=== PATIENT | female | born 1935 | race Caucasian/White ===

== ENCOUNTER → 2016-09-25 | Outpatient (REF) | payer MEDICARE ==
[~2016-09-25] MED LIST: ACET65TA OR; ALBU17IN2 IN; ASPI81TA83 OR; ATOR1TAB19 PO; BISO5TAB5 PO; BREO1INH INH; CALC600T57 PO; CALCCHW12 OR; CIPR25SS PO; CLON0.5T PO; COZA100T OR; DIPH2.5L PO; FLAG500T OR; LETROZOLE PO; LOSA100T PO; LOSARTAN/HCTZ PO; MAALSUS OR; MAG-TAB OR; MAGN500T5 PO; OMEP20CA3 PO; OMEP20TA7 OR; PRED10TA PO; PROA1AER INH; SLOWTAB OR; SM I100T PO; ZEBE5TAB OR; ZOCO40TA OR; boniva OR; compazine OR; hyzaar OR; hyzaar PO
[2016-09-25 20:26] LABS: ALBUMIN 3.9 GM/DL (3.2-5.2); ALBUMIN/GLOBULIN RATIO 1.3 (1.00-1.93); BILIRUBIN,TOTAL 0.3 MG/DL (0.2-1.0); CALCIUM LEVEL 8.7 MG/DL (8.8-10.2); CREATININE FOR GFR 1.34 MG/DL (0.55-1.02); GLOMERULAR FILTRATION RATE 40.5 (>32); MAGNESIUM LEVEL 2.4 MG/DL (1.8-2.4); TOTAL PROTEIN 6.9 GM/DL (6.4-8.2)
[2016-09-25 20:33] LABS: POTASSIUM SERUM 5.7 MEQ/L (3.5-5.1)
== END ==
LOC: M SFHCPLAZ 15:43
PROVIDERS: ATTEND Internal Medicine
DX: I25.10 Atherosclerotic heart disease of native coronary artery without angina pectoris (principal); R73.01 Impaired fasting glucose; I10 Essential (primary) hypertension
CPT/HCPCS: 36415; 80053; 83036; 83735; G0463

== ENCOUNTER 2016-10-02 12:44 | Emergency (ER) | payer MEDICARE ==
[~2016-10-02] VITALS: Ht 162.6 cm; Wt 55.8 kg
[2016-10-02 13:24] LABS: BASO % 0.6 % (0.0-1.0); EOS # 0.5 K/mm3 (0.0-0.50); EOS % 7.9 % (0.0-3.0); LARGE UNSTAINED CELL # 0.1 K/mm3 (0.0-0.4); LARGE UNSTAINED CELL % 1.7 % (0.0-4.0); LYMPH # 0.8 K/mm3 (1.5-4.5); LYMPH % 14.5 % (24.0-44.0); MEAN CORPUSCULAR HEMOGLOBIN 33.9 pg (27.0-33.0); MEAN CORPUSCULAR HGB CONC 31.9 g/dl (32.0-36.5); MEAN CORPUSCULAR VOLUME 106.2 fl (80.0-96.0); MONO # 0.4 K/mm3 (0.0-0.8); MONO % 7.1 % (0.0-5.0); NEUTROPHILS % 68.2 % (36.0-66.0); PLATELET COUNT, AUTOMATED 208 k/mm3 (150-450); RED CELL DISTRIBUTION WIDTH 12.6 % (11.5-14.5); WHITE BLOOD COUNT 5.8 K/mm3 (4.0-10.0)
[2016-10-02] MEDS ORDERED: NITROGLYCERIN 0.4 MG SUBL TABLET SL STA (13:43)
[2016-10-02 13:50] LABS: ALBUMIN 3.4 GM/DL (3.2-5.2); ALBUMIN/GLOBULIN RATIO 1.03 (1.00-1.93); ALKALINE PHOSPHATASE 61 U/L (45-117); ALT/SGPT 16 U/L (12-78); ANION GAP 4 MEQ/L (8-16); AST/SGOT 16 U/L (15-37); BILIRUBIN,DIRECT < 0.1 MG/DL (0.0-0.2); BILIRUBIN,TOTAL 0.2 MG/DL (0.2-1.0); BLOOD UREA NITROGEN 21 MG/DL (7-18); CALCIUM LEVEL 8.5 MG/DL (8.8-10.2); CARBON DIOXIDE LEVEL 32 MEQ/L (21-32); CHLORIDE LEVEL 105 MEQ/L (98-107); CREATININE FOR GFR 1.06 MG/DL (0.55-1.02); GLOMERULAR FILTRATION RATE 53.1 (>32); GLUCOSE, FASTING 103 MG/DL (83-110); POTASSIUM SERUM 4.3 MEQ/L (3.5-5.1); SODIUM LEVEL 141 MEQ/L (136-145); TOTAL PROTEIN 6.7 GM/DL (6.4-8.2)
--- NOTE | 2016-10-02 13:54 | REP ---
CHEST, TWO VIEWS: HISTORY: Chest pain. COMPARISON: 04/08/2016. The lungs are hyperinflated. An increase in interstitial markings is present in the lungs. The heart is normal in size. The pulmonary vasculature is normal in appearance. Degenerative change is present in the thoracic spine. IMPRESSION: COPD. Signed by Ramon Rocha MD 10/02/2016 02:09 P
[2016-10-02] MEDS ORDERED: traMADol 50 MG TAB PO ONE (14:15)
[2016-10-02 14:32] VITALS: O2SAT 99
[2016-10-02 20:16] VITALS: BP 134/61
--- NOTE | 2016-10-03 08:09 | ECGEPIP ---
Stationary ECG Study [facility] - ED Test Date: 2016-10-02 Pat Name: EFREN LAWLER Department: Room: - Gender: F Lpn Or Medical Assistant: john : 1935 Requested By: JACEK Franklin Order Number: [id number] Reading MD: Vickie Bolden Measurements Intervals [place] Rate: 60 P: 81 [place]: 156 QRS: 39 QRSD: 82 T: 54 QT: 423 QTc: 426 Interpretive Statements SINUS RHYTHM LOW VOLTAGE LIMB NSTTW ABNORMALITY DECREASED RATE 05/20/16 Electronically Signed On 10-03-2016 8:08:42 EDT by Vickie Bolden
--- NOTE | 2016-10-03 08:18 | ECGEPIP ---
Stationary ECG Study [facility] - ED Test Date: 2016-10-02 Pat Name: EFREN LAWLER Department: Room: - Gender: F Maintenance Service Dispatcher: john : 1935 Requested By: JACEK Franklin Order Number: [id number] Reading MD: Vickie Bolden Measurements Intervals [place] Rate: 57 P: 63 [place]: 161 QRS: 41 QRSD: 81 T: 58 QT: 434 QTc: 423 Interpretive Statements SINUS BRADYCARDIA WITH SINUS ARRHYTHMIA NSTTW ABNORMALITY LOW VOLTAGE LIMB SIMILAR 10/02/16 13:00 Electronically Signed On 10-03-2016 8:18:04 EDT by Vickie Bolden
== END 2016-10-02 21:19 | disposition home or self-care (01) ==
LOC: M ED 15:03
DX: R06.02 Shortness of breath (principal); R94.31 Abnormal electrocardiogram [ECG] [EKG]; I25.10 Atherosclerotic heart disease of native coronary artery without angina pectoris; E11.9 Type 2 diabetes mellitus without complications; J44.9 Chronic obstructive pulmonary disease, unspecified; Z95.5 Presence of coronary angioplasty implant and graft; Z79.899 Other long term (current) drug therapy; Z91.041 Radiographic dye allergy status; Z88.8 Allergy status to other drugs, medicaments and biological substances

== ENCOUNTER → 2016-11-28 | Outpatient (REF) | payer MEDICARE ==
[2016-11-28 20:18] LABS: PERCENT SATURATION 21.4 % (13.2-37.4)
== END ==
LOC: M LAB REF 16:27
PROVIDERS: ATTEND Internal Medicine Medical Oncology
DX: C50.519 Malignant neoplasm of lower-outer quadrant of unspecified female breast (principal)

== ENCOUNTER → 2017-02-07 | Outpatient (CLI) | payer MEDICARE ==
[~2017-02-07] MED LIST changes: -LOSA100T PO; +LOSA100T8 PO; -PRED10TA PO; +PRED10TA2 PO; -PROA1AER INH; +PROAAER10 INH
[2017-02-07 13:57] LABS: ALBUMIN 3.6 GM/DL (3.2-5.2); ALBUMIN/GLOBULIN RATIO 1.09 (1.00-1.93); ALKALINE PHOSPHATASE 57 U/L (45-117); ALT/SGPT 14 U/L (12-78); ANION GAP 8 MEQ/L (8-16); AST/SGOT 11 U/L (15-37); BILIRUBIN,TOTAL 0.4 MG/DL (0.2-1.0); BLOOD UREA NITROGEN 19 MG/DL (7-18); CARBON DIOXIDE LEVEL 32 MEQ/L (21-32); CHLORIDE LEVEL 104 MEQ/L (98-107); CHOLESTEROL LEVEL 107 MG/DL (<200); CREATININE FOR GFR 0.91 MG/DL (0.55-1.02); GLOMERULAR FILTRATION RATE > 60.0 (>32); GLUCOSE, FASTING 100 MG/DL (83-110); MAGNESIUM LEVEL 1.9 MG/DL (1.8-2.4); SODIUM LEVEL 144 MEQ/L (136-145); TOTAL PROTEIN 6.9 GM/DL (6.4-8.2); TRIGLYCERIDES LEVEL 74 MG/DL (<150)
[2017-02-07 13:59] LABS: POTASSIUM SERUM 5.2 MEQ/L (3.5-5.1)
== END ==
LOC: M WUC 09:01
PROVIDERS: ATTEND Internal Medicine
DX: R73.01 Impaired fasting glucose (principal); I10 Essential (primary) hypertension; E78.00 Pure hypercholesterolemia, unspecified

== ENCOUNTER → 2017-02-13 | Outpatient (REF) | payer MEDICARE | LOC: M SMT 13:12 | PROVIDERS: ATTEND Internal Medicine | DX: R73.01 Impaired fasting glucose (principal) ==

== ENCOUNTER → 2017-02-27 | Outpatient (CLI) | payer MEDICARE ==
--- NOTE | 2017-02-27 10:31 | REP ---
ULTRASOUND ABDOMINAL AORTA: Real-time sonographic evaluation of the abdominal aorta is performed. Maximum AP diameter of the distal abdominal aorta is 3.7 cm, with transverse diameter. 4.2 cm, compatible with an abdominal aortic aneurysm. This extends for a length of between 4 and 5 cm. Measurements are essentially unchanged since the prior study of 12/08/2015. More proximally, the maximum AP diameter of the abdominal aorta is 2.8 to 2.9 cm. Right common iliac artery measures 1.2 x 1.6 cm and left common iliac artery 1.1 x 1.3 cm. There is moderate plaquing and thrombus in the aneurysm with the residual lumen measuring 1.9 x 2.9 cm. IMPRESSION: Stable abdominal aortic aneurysm.
== END ==
LOC: M WHC 08:55
PROVIDERS: ATTEND Internal Medicine
DX: I71.4 Abdominal aortic aneurysm, without rupture (principal)

== ENCOUNTER → 2017-05-29 | Outpatient (REF) | payer MEDICARE ==
[2017-05-29 19:05] LABS: FERRITIN 213 NG/ML (8-252); PERCENT SATURATION 26.2 % (13.2-45.0); TOTAL IRON BINDING CAPACITY 260 UG/DL (250-450)
[2017-05-29 22:05] LABS: VITAMIN B12 LEVEL 394 PG/ML
[2017-05-29 22:06] LABS: FOLATE 8.5 NG/ML
== END ==
LOC: M LAB REF 16:48
DX: D64.9 Anemia, unspecified (principal)
CPT/HCPCS: 82746

== ENCOUNTER → 2017-07-04 | Outpatient (CLI) | payer MEDICARE ==
[2017-07-04 14:04] LABS: HEMATOCRIT 39.5 % (36.0-47.0); MEAN CORPUSCULAR HEMOGLOBIN 30.4 pg (27.0-33.0); MEAN CORPUSCULAR HGB CONC 27.8 g/dl (32.0-36.5); MEAN CORPUSCULAR VOLUME 109.1 fl (80.0-96.0); PLATELET COUNT, AUTOMATED 215 10^3/uL (150-450); RED BLOOD COUNT 3.62 10^6/uL (4.00-5.40); RED CELL DISTRIBUTION WIDTH 12.8 % (11.5-14.5); WHITE BLOOD COUNT 6.1 10^3/uL (4.0-10.0)
[2017-07-04 14:28] LABS: ALBUMIN/GLOBULIN RATIO 1.29 (1.00-1.93); ALKALINE PHOSPHATASE 57 U/L (45-117); ALT/SGPT 17 U/L (12-78); ANION GAP 7 MEQ/L (8-16); AST/SGOT 16 U/L (7-37); BILIRUBIN,TOTAL 0.4 MG/DL (0.2-1.0); BLOOD UREA NITROGEN 28 MG/DL (7-18); CALCIUM LEVEL 9.2 MG/DL (8.8-10.2); CARBON DIOXIDE LEVEL 30 MEQ/L (21-32); CHLORIDE LEVEL 106 MEQ/L (98-107); CREATININE FOR GFR 1.05 MG/DL (0.55-1.30); GLOMERULAR FILTRATION RATE 53.5 (>32); GLUCOSE, FASTING 122 MG/DL (70-100); MAGNESIUM LEVEL 2.2 MG/DL (1.8-2.4); SODIUM LEVEL 143 MEQ/L (136-145); TOTAL PROTEIN 7.1 GM/DL (6.4-8.2)
[2017-07-04 14:38] LABS: POTASSIUM SERUM 5.3 MEQ/L (3.5-5.1)
== END ==
LOC: M WUC 08:42
DX: J44.9 Chronic obstructive pulmonary disease, unspecified (principal); I10 Essential (primary) hypertension
CPT/HCPCS: 83735

== ENCOUNTER 2017-09-14 06:01 | Emergency (ER) | payer MEDICARE ==
[2017-09-14 06:42] LABS: BASO % 0.4 % (0.0-1.0); EOS # 0.3 10^3/uL (0.0-0.50); EOS % 4.7 % (0.0-3.0); HEMATOCRIT 36.4 % (36.0-47.0); HEMOGLOBIN 10.8 g/dl (12.0-15.5); IMMATURE GRANULOCYTE % 0.1 % (0-3.0); LYMPH # 1.1 10^3/uL (1.5-4.5); LYMPH % 15.6 % (24.0-44.0); MEAN CORPUSCULAR HEMOGLOBIN 31.5 pg (27.0-33.0); MEAN CORPUSCULAR HGB CONC 29.7 g/dl (32.0-36.5); MEAN CORPUSCULAR VOLUME 106.1 fl (80.0-96.0); MONO # 0.6 10^3/uL (0.0-0.8); MONO % 8.8 % (0.0-5.0); NEUTROPHILS # 4.8 10^3/uL (1.8-7.7); NEUTROPHILS % 70.4 % (36.0-66.0); PLATELET COUNT, AUTOMATED 172 10^3/uL (150-450); RED BLOOD COUNT 3.43 10^6/uL (4.00-5.40); RED CELL DISTRIBUTION WIDTH 12.6 % (11.5-14.5); WHITE BLOOD COUNT 6.9 10^3/uL (4.0-10.0)
[2017-09-14 07:02] LABS: ANION GAP 6 MEQ/L (8-16); BLOOD UREA NITROGEN 29 MG/DL (7-18); CALCIUM LEVEL 8.7 MG/DL (8.8-10.2); CARBON DIOXIDE LEVEL 31 MEQ/L (21-32); CHLORIDE LEVEL 107 MEQ/L (98-107); CPK CREATINE PHOSPHOKINASE 59 U/L (26-192); CREATININE FOR GFR 1.16 MG/DL (0.55-1.30); GLOMERULAR FILTRATION RATE 47.7 (>32); GLUCOSE, FASTING 118 MG/DL (70-100); MB/CK RELATIVE INDEX 3.38 (< OR =4); POTASSIUM SERUM 4.4 MEQ/L (3.5-5.1); SODIUM LEVEL 144 MEQ/L (136-145); TROPONIN I < 0.02 NG/ML (< 0.10)
[2017-09-14 11:29] LABS: CK-MB VALUE MASS 2.2 NG/ML (<3.6); CPK CREATINE PHOSPHOKINASE 64 U/L (26-192); MB/CK RELATIVE INDEX 3.43 (< OR =4); TROPONIN I 0.03 NG/ML (< 0.10)
== END 2017-09-14 12:25 | disposition home or self-care (01) ==
LOC: M ED 06:01
DX: R07.9 Chest pain, unspecified (principal); R91.8 Other nonspecific abnormal finding of lung field; E11.9 Type 2 diabetes mellitus without complications; J44.9 Chronic obstructive pulmonary disease, unspecified; I10 Essential (primary) hypertension; M81.0 Age-related osteoporosis without current pathological fracture; F41.9 Anxiety disorder, unspecified; Z87.19 Personal history of other diseases of the digestive system; Z87.891 Personal history of nicotine dependence; Z86.69 Personal history of other diseases of the nervous system and sense organs
CPT/HCPCS: 71045

== ENCOUNTER → 2018-01-01 | Outpatient (CLI) | payer MEDICARE ==
[2018-01-01 12:51] LABS: TOTAL 25(OH) VITAMIN D 25.4 NG/ML (30.0-100.0)
[2018-01-01 13:19] LABS: ALBUMIN 3.8 GM/DL (3.2-5.2); ALBUMIN/GLOBULIN RATIO 1.09 (1.00-1.93); ALKALINE PHOSPHATASE 63 U/L (45-117); ALT/SGPT 18 U/L (12-78); ANION GAP 5 MEQ/L (8-16); AST/SGOT 14 U/L (7-37); BILIRUBIN,TOTAL 0.4 MG/DL (0.2-1.0); BLOOD UREA NITROGEN 25 MG/DL (7-18); CARBON DIOXIDE LEVEL 34 MEQ/L (21-32); CHLORIDE LEVEL 104 MEQ/L (98-107); CHOLESTEROL LEVEL 111 MG/DL (<200); CHOLESTEROL RISK RATIO 2.522 (<5); GLOMERULAR FILTRATION RATE 56.5 (>32); GLUCOSE, FASTING 118 MG/DL (70-100); HDL CHOLESTEROL 44 MG/DL (>40); MAGNESIUM LEVEL 1.6 MG/DL (1.8-2.4); NON-HDL-C 67 MG/DL; SODIUM LEVEL 143 MEQ/L (136-145); TOTAL PROTEIN 7.3 GM/DL (6.4-8.2); TRIGLYCERIDES LEVEL 120 MG/DL (<150)
[2018-01-01 13:34] LABS: ESTIMATED AVERAGE GLUCOSE 126 MG/DL (60-110)
== END ==
LOC: M WUC 08:58
DX: Z00.00 Encounter for general adult medical examination without abnormal findings (principal); I10 Essential (primary) hypertension; E78.00 Pure hypercholesterolemia, unspecified; M81.0 Age-related osteoporosis without current pathological fracture
CPT/HCPCS: 83735

== ENCOUNTER 2018-03-23 17:43 | Inpatient (IN) | payer MEDICARE ==
[2018-03-23 18:43] LABS: BASO % 0.2 % (0.0-1.0); EOS # 0.1 10^3/uL (0.0-0.50); EOS % 0.6 % (0.0-3.0); HEMOGLOBIN 10.3 g/dl (12.0-15.5); IMMATURE GRANULOCYTE % 0.3 % (0-3.0); LYMPH # 0.4 10^3/uL (1.5-4.5); LYMPH % 4.1 % (24.0-44.0); MEAN CORPUSCULAR HEMOGLOBIN 32.7 pg (27.0-33.0); MEAN CORPUSCULAR HGB CONC 29.4 g/dl (32.0-36.5); MEAN CORPUSCULAR VOLUME 111.1 fl (80.0-96.0); NEUTROPHILS % 85.8 % (36.0-66.0); PLATELET COUNT, AUTOMATED 179 10^3/uL (150-450); RED BLOOD COUNT 3.15 10^6/uL (4.00-5.40); RED CELL DISTRIBUTION WIDTH 12.4 % (11.5-14.5); WHITE BLOOD COUNT 10.5 10^3/uL (4.0-10.0)
[2018-03-23 18:54] LABS: LACTIC ACID SEPSIS PROTOCOL 1.3 MMOL/L (0.4-2.0)
[2018-03-23 18:55] LABS: PROTHROMBIN TIME 13.3 SECONDS (12.1-14.4)
[2018-03-23 18:58] LABS: ALBUMIN 3.6 GM/DL (3.2-5.2); ALBUMIN/GLOBULIN RATIO 1.16 (1.00-1.93); ALKALINE PHOSPHATASE 49 U/L (45-117); ALT/SGPT 17 U/L (12-78); AMYLASE 123 U/L (25-115); ANION GAP 10 MEQ/L (8-16); AST/SGOT 18 U/L (7-37); BILIRUBIN,DIRECT 0.2 MG/DL (0.0-0.2); BILIRUBIN,TOTAL 0.7 MG/DL (0.2-1.0); BLOOD UREA NITROGEN 27 MG/DL (7-18); CALCIUM LEVEL 8.3 MG/DL (8.8-10.2); CARBON DIOXIDE LEVEL 31 MEQ/L (21-32); CHLORIDE LEVEL 98 MEQ/L (98-107); CPK CREATINE PHOSPHOKINASE 51 U/L (26-192); CREATININE FOR GFR 1.08 MG/DL (0.55-1.30); FREE T4 1.22 NG/DL (0.76-1.46); GLOMERULAR FILTRATION RATE 51.7 (>32); GLUCOSE, FASTING 182 MG/DL (70-100); LIPASE 156 U/L (73-393); MB/CK RELATIVE INDEX 2.55 (< OR =4); SODIUM LEVEL 139 MEQ/L (136-145); TOTAL PROTEIN 6.7 GM/DL (6.4-8.2); TROPONIN I 0.23 NG/ML (< 0.10)
[2018-03-23] MEDS: NS 500 ML IV (19:35)
[2018-03-23 20:47] LABS: KETONE, URINE AUTO RFX 1+ mg/dL (NEGATIVE); MUCUS, URINE RFX SMALL (NEGATIVE); NITRITE, URINE AUTO RFX NEGATIVE (NEGATIVE); RBC, URINE AUTO RFX 10 /HPF (0-3); SPECIFIC GRAVITY UR AUTO RFX 1.015 (1.002-1.035); SQUAM EPITHELIAL CELL UR AURFX 3 /HPF (0-6); TRANSITIONAL EPITHELIAL AU RFX <1 /HPF
[2018-03-23 20:48] LABS: LEUKOCYTE ESTERASE UR AUTO RFX 3+ (NEGATIVE); WBC, URINE AUTO RFX 37 /HPF (0-3)
[2018-03-23] MEDS: clonazePAM 0.5 MG TAB PO (21:00)
[2018-03-24 00:48] LABS: CPK CREATINE PHOSPHOKINASE 63 U/L (26-192)
[2018-03-24] MEDS: CIPROFLOXACIN 400 MG in APPROPRIATE DILUENT 1 EA IV (01:19)
[2018-03-24] MEDS ORDERED: ONDANSETRON 4MG/2ML VIAL (J2405) IV (02:15)
[2018-03-24] MEDS: NS 1,000 ML IV ×2 (04:00→15:35)
[2018-03-24] MEDS: ACETAMINOPHEN TAB 650MG DOSE (2X325MG) PO (04:17)
[2018-03-24] MEDS: cefTRIAXone SOD 1 GM in D5W MINI-BAG PLUS 50 ML IV (06:27)
[2018-03-24 07:04] LABS: BASO % 0.3 % (0.0-1.0); EOS % 0.1 % (0.0-3.0); HEMATOCRIT 29.5 % (36.0-47.0); HEMOGLOBIN 8.9 g/dl (12.0-15.5); IMMATURE GRANULOCYTE % 0.3 % (0-3.0); LYMPH # 0.8 10^3/uL (1.5-4.5); LYMPH % 7.3 % (24.0-44.0); MEAN CORPUSCULAR HEMOGLOBIN 32.4 pg (27.0-33.0); MEAN CORPUSCULAR HGB CONC 30.2 g/dl (32.0-36.5); MEAN CORPUSCULAR VOLUME 107.3 fl (80.0-96.0); MONO # 1.1 10^3/uL (0.0-0.8); MONO % 10.1 % (0.0-5.0); NEUTROPHILS # 8.7 10^3/uL (1.8-7.7); NEUTROPHILS % 81.9 % (36.0-66.0); PLATELET COUNT, AUTOMATED 152 10^3/uL (150-450); RED BLOOD COUNT 2.75 10^6/uL (4.00-5.40); RED CELL DISTRIBUTION WIDTH 12.3 % (11.5-14.5); WHITE BLOOD COUNT 10.6 10^3/uL (4.0-10.0)
[2018-03-24 07:15] LABS: ANION GAP 7 MEQ/L (8-16); BLOOD UREA NITROGEN 20 MG/DL (7-18); CALCIUM LEVEL 8.3 MG/DL (8.8-10.2); CARBON DIOXIDE LEVEL 30 MEQ/L (21-32); CHLORIDE LEVEL 99 MEQ/L (98-107); CREATININE FOR GFR 0.83 MG/DL (0.55-1.30); GLOMERULAR FILTRATION RATE > 60.0 (>32); GLUCOSE, FASTING 135 MG/DL (70-100); POTASSIUM SERUM 3.6 MEQ/L (3.5-5.1); SODIUM LEVEL 136 MEQ/L (136-145)
[2018-03-24] MEDS: ENOXAPARIN 40 MG/0.4 ML SYRINGE (J1650) SC (08:52)
[2018-03-24] MEDS: CitaloPRAM (CeleXA) 10 MG TABLET PO (08:52)
[2018-03-24] MEDS: OMEPRAZOLE 20 MG CAP PO (08:52)
[2018-03-24] MEDS: LOSARTAN 50 MG TAB PO (09:00)
[2018-03-24] MEDS: BISOPROLOL FUM 2.5 MG PER 1/2TAB PO (13:01)
[2018-03-24] MEDS: ATORVASTATIN 20 MG TAB PO (20:27)
[2018-03-24] MEDS: clonazePAM 0.5 MG TAB PO (20:27)
[2018-03-25] MEDS: cefTRIAXone SOD 1 GM in D5W MINI-BAG PLUS 50 ML IV (05:20)
[2018-03-25] MEDS: NS 1,000 ML IV ×2 (05:20→18:15)
[2018-03-25 08:35] LABS: HEMATOCRIT 29.6 % (36.0-47.0); HEMOGLOBIN 8.6 g/dl (12.0-15.5); MEAN CORPUSCULAR HGB CONC 29.1 g/dl (32.0-36.5); PLATELET COUNT, AUTOMATED 160 10^3/uL (150-450); RED BLOOD COUNT 2.69 10^6/uL (4.00-5.40); RED CELL DISTRIBUTION WIDTH 12.3 % (11.5-14.5); WHITE BLOOD COUNT 7.8 10^3/uL (4.0-10.0)
[2018-03-25 08:55] LABS: MAGNESIUM LEVEL 1.3 MG/DL (1.8-2.4)
[2018-03-25 08:58] LABS: ANION GAP 4 MEQ/L (8-16); BLOOD UREA NITROGEN 11 MG/DL (7-18); CALCIUM LEVEL 8.1 MG/DL (8.8-10.2); CARBON DIOXIDE LEVEL 33 MEQ/L (21-32); CHLORIDE LEVEL 103 MEQ/L (98-107); CREATININE FOR GFR 0.71 MG/DL (0.55-1.30); GLOMERULAR FILTRATION RATE > 60.0 (>32); GLUCOSE, FASTING 99 MG/DL (70-100); POTASSIUM SERUM 3.6 MEQ/L (3.5-5.1); SODIUM LEVEL 140 MEQ/L (136-145)
[2018-03-25] MEDS: ENOXAPARIN 40 MG/0.4 ML SYRINGE (J1650) SC (09:03)
[2018-03-25] MEDS: LOSARTAN 50 MG TAB PO (09:04)
[2018-03-25] MEDS: CitaloPRAM (CeleXA) 10 MG TABLET PO (09:04)
[2018-03-25] MEDS: OMEPRAZOLE 20 MG CAP PO (09:04)
[2018-03-25 09:10] LABS: CPK CREATINE PHOSPHOKINASE 43 U/L (26-192); MB/CK RELATIVE INDEX 2.56 (< OR =4); TROPONIN I 0.11 NG/ML (< 0.10)
[2018-03-25] MEDS: BISOPROLOL FUM 2.5 MG PER 1/2TAB PO (10:33)
[2018-03-25] MEDS: FLUBLOK(EGG FREE)(QUAD)INFLUENZA VACC 0.5ML SYRINGE (90682)18YRS&OLDER IM (10:43)
[2018-03-25] MEDS: ACETAMINOPHEN TAB 650MG DOSE (2X325MG) PO ×2 (15:04→20:08)
[2018-03-25] MEDS: clonazePAM 0.5 MG TAB PO (20:07)
[2018-03-25] MEDS: ATORVASTATIN 20 MG TAB PO (20:07)
[2018-03-26] MEDS: cefTRIAXone SOD 1 GM in D5W MINI-BAG PLUS 50 ML IV (05:01)
[2018-03-26 06:09] LABS: HEMOGLOBIN 8.4 g/dl (12.0-15.5); MEAN CORPUSCULAR HEMOGLOBIN 32.3 pg (27.0-33.0); MEAN CORPUSCULAR VOLUME 111.5 fl (80.0-96.0); PLATELET COUNT, AUTOMATED 168 10^3/uL (150-450); RED CELL DISTRIBUTION WIDTH 12.3 % (11.5-14.5); WHITE BLOOD COUNT 5.2 10^3/uL (4.0-10.0)
[2018-03-26 06:37] LABS: ANION GAP 5 MEQ/L (8-16); BLOOD UREA NITROGEN 12 MG/DL (7-18); CALCIUM LEVEL 8.1 MG/DL (8.8-10.2); CARBON DIOXIDE LEVEL 32 MEQ/L (21-32); CHLORIDE LEVEL 106 MEQ/L (98-107); CREATININE FOR GFR 0.84 MG/DL (0.55-1.30); GLOMERULAR FILTRATION RATE > 60.0 (>32); GLUCOSE, FASTING 88 MG/DL (70-100); MAGNESIUM LEVEL 1.3 MG/DL (1.8-2.4); POTASSIUM SERUM 3.6 MEQ/L (3.5-5.1); SODIUM LEVEL 143 MEQ/L (136-145)
[2018-03-26 06:39] LABS: FERRITIN 416 NG/ML (8-252); IRON (FE) 26 UG/DL (50-170); PERCENT SATURATION 16.7 % (13.2-45.0); TOTAL IRON BINDING CAPACITY 156 UG/DL (250-450)
[2018-03-26] MEDS: FERROUS SULFATE 300MG/5ML UDC LIQUID PO ×2 (09:00→21:22)
[2018-03-26] MEDS: NS 1,000 ML IV ×2 (09:20→22:12)
[2018-03-26 09:21] LABS: VITAMIN B12 LEVEL > 2000 PG/ML (247-911)
[2018-03-26] MEDS: MAG SULF 1GM/100ML (MAG RUN) 1 GM in APPROPRIATE DILUENT 1 EA IV ×2 (09:22→10:35)
[2018-03-26 09:23] LABS: FOLATE 7.3 NG/ML (>5.4)
[2018-03-26] MEDS: OMEPRAZOLE 20 MG CAP PO (09:24)
[2018-03-26] MEDS: ENOXAPARIN 40 MG/0.4 ML SYRINGE (J1650) SC (09:24)
[2018-03-26] MEDS: MAGNESIUM OXIDE 400 MG TAB (MAG-OX) PO ×2 (09:24→21:23)
[2018-03-26] MEDS: CitaloPRAM (CeleXA) 10 MG TABLET PO (09:25)
[2018-03-26] MEDS: LOSARTAN 50 MG TAB PO (09:25)
[2018-03-26] MEDS: BISOPROLOL FUM 2.5 MG PER 1/2TAB PO (09:25)
[2018-03-26 11:08] LABS: GOLD SPEC TUBE RECIEVED
[2018-03-26] MEDS: ACETAMINOPHEN TAB 650MG DOSE (2X325MG) PO ×2 (12:38→21:23)
[2018-03-26] MEDS: ATORVASTATIN 20 MG TAB PO (21:22)
[2018-03-26] MEDS: clonazePAM 0.5 MG TAB PO (21:23)
[2018-03-27] MEDS ORDERED: MICONAZOLE-7 VAGINAL 2% CREAM 47.7 GM PV (03:47)
[2018-03-27] MEDS: cefTRIAXone SOD 1 GM in D5W MINI-BAG PLUS 50 ML IV (05:36)
[2018-03-27] MEDS: ACETAMINOPHEN TAB 650MG DOSE (2X325MG) PO (05:57)
[2018-03-27 07:08] LABS: HEMOGLOBIN 8.5 g/dl (12.0-15.5); MEAN CORPUSCULAR HEMOGLOBIN 32.6 pg (27.0-33.0); MEAN CORPUSCULAR HGB CONC 29.3 g/dl (32.0-36.5); MEAN CORPUSCULAR VOLUME 111.1 fl (80.0-96.0); PLATELET COUNT, AUTOMATED 169 10^3/uL (150-450); RED BLOOD COUNT 2.61 10^6/uL (4.00-5.40); RED CELL DISTRIBUTION WIDTH 12.2 % (11.5-14.5); WHITE BLOOD COUNT 6.1 10^3/uL (4.0-10.0)
[2018-03-27 07:40] LABS: ANION GAP 4 MEQ/L (8-16); BLOOD UREA NITROGEN 10 MG/DL (7-18); C REACTIVE PROTEIN QUANTITATIV 5.47 MG/DL (0.00-0.30); CALCIUM LEVEL 8.3 MG/DL (8.8-10.2); CARBON DIOXIDE LEVEL 34 MEQ/L (21-32); CHLORIDE LEVEL 102 MEQ/L (98-107); CREATININE FOR GFR 0.77 MG/DL (0.55-1.30); GLOMERULAR FILTRATION RATE > 60.0 (>32); GLUCOSE, FASTING 144 MG/DL (70-100); MAGNESIUM LEVEL 1.4 MG/DL (1.8-2.4); POTASSIUM SERUM 3.7 MEQ/L (3.5-5.1); SODIUM LEVEL 140 MEQ/L (136-145)
[2018-03-27] MEDS: BISOPROLOL FUM 2.5 MG PER 1/2TAB PO (10:19)
[2018-03-27] MEDS: OMEPRAZOLE 20 MG CAP PO (10:20)
[2018-03-27] MEDS: FERROUS SULFATE 300MG/5ML UDC LIQUID PO ×2 (10:20→20:45)
[2018-03-27] MEDS: CitaloPRAM (CeleXA) 10 MG TABLET PO (10:21)
[2018-03-27] MEDS: LOSARTAN 50 MG TAB PO (10:21)
[2018-03-27] MEDS: MAGNESIUM OXIDE 400 MG TAB (MAG-OX) PO ×2 (10:21→20:45)
[2018-03-27] MEDS: ENOXAPARIN 40 MG/0.4 ML SYRINGE (J1650) SC (10:22)
[2018-03-27] MEDS: ALBUTEROL 90 MCG/ACT 8GM HFA INHALER INH (10:27)
[2018-03-27] MEDS: NS 1,000 ML IV (11:52)
[2018-03-27] MEDS: CEFDINIR 300 MG CAP (OMNICEF) PO (20:45)
[2018-03-27] MEDS: ATORVASTATIN 20 MG TAB PO (20:45)
[2018-03-27] MEDS: clonazePAM 0.5 MG TAB PO (20:45)
[2018-03-28 06:26] LABS: HEMATOCRIT 30.1 % (36.0-47.0); HEMOGLOBIN 8.7 g/dl (12.0-15.5); MEAN CORPUSCULAR HGB CONC 28.9 g/dl (32.0-36.5); MEAN CORPUSCULAR VOLUME 110.7 fl (80.0-96.0); PLATELET COUNT, AUTOMATED 185 10^3/uL (150-450); RED BLOOD COUNT 2.72 10^6/uL (4.00-5.40); RED CELL DISTRIBUTION WIDTH 12.2 % (11.5-14.5); WHITE BLOOD COUNT 5.5 10^3/uL (4.0-10.0)
[2018-03-28 06:54] LABS: ANION GAP 3 MEQ/L (8-16); BLOOD UREA NITROGEN 8 MG/DL (7-18); CALCIUM LEVEL 8.8 MG/DL (8.8-10.2); CARBON DIOXIDE LEVEL 41 MEQ/L (21-32); CHLORIDE LEVEL 98 MEQ/L (98-107); CREATININE FOR GFR 0.65 MG/DL (0.55-1.30); GLOMERULAR FILTRATION RATE > 60.0 (>32); GLUCOSE, FASTING 102 MG/DL (70-100); MAGNESIUM LEVEL 1.3 MG/DL (1.8-2.4); POTASSIUM SERUM 3.8 MEQ/L (3.5-5.1); SODIUM LEVEL 142 MEQ/L (136-145)
[2018-03-28] MEDS: ENOXAPARIN 40 MG/0.4 ML SYRINGE (J1650) SC (08:54)
[2018-03-28] MEDS: FERROUS SULFATE 300MG/5ML UDC LIQUID PO (08:54)
[2018-03-28] MEDS: OMEPRAZOLE 20 MG CAP PO (08:55)
[2018-03-28] MEDS: CEFDINIR 300 MG CAP (OMNICEF) PO (08:55)
[2018-03-28] MEDS: MAGNESIUM OXIDE 400 MG TAB (MAG-OX) PO (08:55)
[2018-03-28] MEDS: CitaloPRAM (CeleXA) 10 MG TABLET PO (08:55)
[2018-03-28] MEDS: LOSARTAN 50 MG TAB PO (08:55)
[2018-03-28] MEDS: MAG SULF 1GM/100ML (MAG RUN) 1 GM in APPROPRIATE DILUENT 1 EA IV ×3 (08:56→11:11)
[2018-03-28] MEDS: BISOPROLOL FUM 2.5 MG PER 1/2TAB PO (08:58)
[2018-03-28] MEDS: ACETAMINOPHEN TAB 650MG DOSE (2X325MG) PO (10:06)
== END 2018-03-28 13:25 | disposition home health service (06) | DRG 690 ==
LOC: M ED INP 03-24 02:15 → M ED 17:43 → M MSPAV 03-24 16:37
DX: N39.0 Urinary tract infection, site not specified (principal); J44.9 Chronic obstructive pulmonary disease, unspecified; I10 Essential (primary) hypertension; D64.9 Anemia, unspecified; E83.42 Hypomagnesemia; B96.20 Unspecified Escherichia coli [E. coli] as the cause of diseases classified elsewhere; E78.5 Hyperlipidemia, unspecified; I25.10 Atherosclerotic heart disease of native coronary artery without angina pectoris; Z90.49 Acquired absence of other specified parts of digestive tract; Z90.710 Acquired absence of both cervix and uterus; Z90.12 Acquired absence of left breast and nipple; Z91.041 Radiographic dye allergy status; Z88.8 Allergy status to other drugs, medicaments and biological substances; Z87.891 Personal history of nicotine dependence; Z99.81 Dependence on supplemental oxygen

== ENCOUNTER 2018-05-01 18:07 | Emergency (ER) | payer MEDICARE ==
[2018-05-01] MEDS: traMADol 50 MG TAB PO (20:52)
[2018-05-01] MEDS: ACETAMINOPHEN 325 MG TAB PO (20:52)
[2018-05-01] MEDS ORDERED: BUPIVACAINE LIPOSOME/PF 1.3% 20ML VIAL (13.3MG/ML)(EXPAREL)(C9290 PER1MG) INFIL (22:00)
== END 2018-05-01 23:10 | disposition home or self-care (01) ==
LOC: M ED 18:07
DX: S22.42XA Multiple fractures of ribs, left side, initial encounter for closed fracture (principal); W01.0XXA Fall on same level from slipping, tripping and stumbling without subsequent striking against object, initial encounter; Y92.018 Other place in single-family (private) house as the place of occurrence of the external cause; J44.9 Chronic obstructive pulmonary disease, unspecified; I10 Essential (primary) hypertension; E11.9 Type 2 diabetes mellitus without complications; E78.00 Pure hypercholesterolemia, unspecified; M81.0 Age-related osteoporosis without current pathological fracture; F41.9 Anxiety disorder, unspecified; Z92.21 Personal history of antineoplastic chemotherapy; Z92.3 Personal history of irradiation; Z88.8 Allergy status to other drugs, medicaments and biological substances; Z91.041 Radiographic dye allergy status
CPT/HCPCS: 71101

== ENCOUNTER → 2018-07-11 | Outpatient (CLI) | payer MEDICARE ==
[~2018-07-11] MED LIST changes: +ATOR40TA75 PO; +BACI1CAP PO; +BISO10TA PO; +CEFD300CAP PO; +CITA-229 PO; -CLON0.5T PO; +CLON0.5T8 PO; +CLOP75TA2 PO; +FERR5MLUD PO; +LOSARTAN/HCT; +MAG400TA PO; +SPIR1CAP INH; +ULTR50TA8 PO
[2018-07-11 12:31] LABS: HEMATOCRIT 36.5 % (36.0-47.0); HEMOGLOBIN 10.4 g/dl (12.0-15.5); MEAN CORPUSCULAR HEMOGLOBIN 31.5 pg (27.0-33.0); MEAN CORPUSCULAR HGB CONC 28.5 g/dl (32.0-36.5); MEAN CORPUSCULAR VOLUME 110.6 fl (80.0-96.0); PLATELET COUNT, AUTOMATED 322 10^3/uL (150-450); WHITE BLOOD COUNT 6.9 10^3/uL (4.0-10.0)
[2018-07-11 12:52] LABS: ALBUMIN 3.5 GM/DL (3.2-5.2); BILIRUBIN,TOTAL 0.3 MG/DL (0.2-1.0); CALCIUM LEVEL 9.4 MG/DL (8.8-10.2); CREATININE FOR GFR 1.48 MG/DL (0.55-1.30); GLOMERULAR FILTRATION RATE 35.9 (>32); MAGNESIUM LEVEL 1.7 MG/DL (1.8-2.4); POTASSIUM SERUM 5.2 MEQ/L (3.5-5.1); TOTAL PROTEIN 7.4 GM/DL (6.4-8.2)
[2018-07-11 13:54] LABS: HEMOGLOBIN A1c 6.3 %
== END ==
LOC: M WUC 09:04
PROVIDERS: ATTEND Internal Medicine
DX: Z85.3 Personal history of malignant neoplasm of breast (principal); I10 Essential (primary) hypertension; R73.01 Impaired fasting glucose

== ENCOUNTER → 2018-08-20 | Outpatient (REF) | payer MEDICARE | LOC: M LAB REF 19:17 | PROVIDERS: ATTEND Physician Assistant | DX: N39.0 Urinary tract infection, site not specified (principal) ==

== ENCOUNTER → 2018-10-09 | Outpatient (CLI) | payer MEDICARE ==
[~2018-10-09] MED LIST changes: -BISO10TA PO; +BISO10TA13 PO; -CITA-229 PO; +CITA10TA6 PO
[2018-10-09 12:39] LABS: HEMATOCRIT 37.4 % (36.0-47.0); HEMOGLOBIN 10.5 g/dl (12.0-15.5); MEAN CORPUSCULAR HEMOGLOBIN 31.8 pg (27.0-33.0); MEAN CORPUSCULAR HGB CONC 28.1 g/dl (32.0-36.5); MEAN CORPUSCULAR VOLUME 113.3 fl (80.0-96.0); PLATELET COUNT, AUTOMATED 180 10^3/uL (150-450); WHITE BLOOD COUNT 6.4 10^3/uL (4.0-10.0)
[2018-10-09 12:51] LABS: ALBUMIN 3.8 GM/DL (3.2-5.2); BILIRUBIN,TOTAL 0.4 MG/DL (0.2-1.0); CALCIUM LEVEL 9.1 MG/DL (8.8-10.2); CHOLESTEROL RISK RATIO 2.183 (<5); CREATININE FOR GFR 1.01 MG/DL (0.55-1.30); GLOMERULAR FILTRATION RATE 55.9 (>32); MAGNESIUM LEVEL 1.8 MG/DL (1.8-2.4); POTASSIUM SERUM 4.9 MEQ/L (3.5-5.1)
[2018-10-09 12:52] LABS: PTH INTACT 95.3 PG/ML (18.5-88.0); TOTAL 25(OH) VITAMIN D 49.5 NG/ML (30.0-100.0)
== END ==
LOC: M WUC 09:31
PROVIDERS: ATTEND Internal Medicine
DX: D64.9 Anemia, unspecified (principal); I10 Essential (primary) hypertension; E78.00 Pure hypercholesterolemia, unspecified; I25.10 Atherosclerotic heart disease of native coronary artery without angina pectoris; M81.0 Age-related osteoporosis without current pathological fracture

== ENCOUNTER → 2019-03-19 | Outpatient (CLI) | payer MEDICARE ==
[~2019-03-19] MED LIST changes: -BISO5TAB5 PO; +BISO5TAB9 PO; -OMEP20CA3 PO; +OMEP20CA4 PO
[2019-03-19 16:28] LABS: BASO # 0.1 10^3/uL (0.0-0.2); BASO % 0.6 % (0.0-1.0); EOS # 0.4 10^3/uL (0.0-0.5); EOS % 4.6 % (0.0-3.0); HEMATOCRIT 40.4 % (36.0-47.0); LYMPH # 1.5 10^3/uL (1.5-5.0); MEAN CORPUSCULAR HEMOGLOBIN 31.5 pg (27.0-33.0); MEAN CORPUSCULAR HGB CONC 27.2 g/dl (32.0-36.5); MONO # 1.1 10^3/uL (0.0-0.8); MONO % 11.7 % (0.0-5.0); NEUTROPHILS % 65.8 % (36.0-66.0); PLATELET COUNT, AUTOMATED 215 10^3/uL (150-450); RED BLOOD COUNT 3.49 10^6/uL (4.00-5.40); WHITE BLOOD COUNT 9.1 10^3/uL (4.0-10.0)
[2019-03-19 16:30] LABS: ALBUMIN 3.9 GM/DL (3.2-5.2); ALT/SGPT 15 U/L (12-78); BILIRUBIN,TOTAL 0.4 MG/DL (0.2-1.0); BLOOD UREA NITROGEN 25 MG/DL (7-18); CALCIUM LEVEL 9.4 MG/DL (8.8-10.2); CARBON DIOXIDE LEVEL 33 MEQ/L (21-32); CHLORIDE LEVEL 101 MEQ/L (98-107); CREATININE FOR GFR 1.19 MG/DL (0.55-1.30); GLOMERULAR FILTRATION RATE 46.1 (>32); GLUCOSE, FASTING 122 MG/DL (70-100); MAGNESIUM LEVEL 1.9 MG/DL (1.8-2.4); SODIUM LEVEL 138 MEQ/L (136-145); TOTAL PROTEIN 7.5 GM/DL (6.4-8.2)
[2019-03-19 16:36] LABS: MEAN CORPUSCULAR VOLUME 115.8 fl (80.0-96.0)
[2019-03-19 16:42] LABS: FOLATE 10.6 NG/ML; VITAMIN B12 LEVEL > 2000 PG/ML
[2019-03-19 17:05] LABS: HEMOGLOBIN A1c 5.7 %
[2019-03-19 18:43] LABS: HYPOCHROMASIA 1+; PLATELET ESTIMATE NORMAL (NORMAL)
== END ==
LOC: M WUC 12:14
PROVIDERS: ATTEND Internal Medicine
DX: D64.9 Anemia, unspecified (principal); I10 Essential (primary) hypertension; R73.01 Impaired fasting glucose

== ENCOUNTER → 2019-10-08 | Outpatient (REF) | payer MEDICARE ==
[~2019-10-08] MED LIST changes: +BISO5TAB14 PO; -BISO5TAB9 PO; +CLON0.5T2 PO; -CLON0.5T8 PO; +OMEP1CAP73 PO; -OMEP20CA4 PO
[2019-10-08 11:56] LABS: HEMATOCRIT 40.2 % (36.0-47.0); MEAN CORPUSCULAR HEMOGLOBIN 31.6 pg (27.0-33.0); MEAN CORPUSCULAR HGB CONC 27.4 g/dl (32.0-36.5); PLATELET COUNT, AUTOMATED 182 10^3/uL (150-450); RED BLOOD COUNT 3.48 10^6/uL (4.00-5.40); WHITE BLOOD COUNT 6.8 10^3/uL (4.0-10.0)
[2019-10-08 11:57] LABS: MEAN CORPUSCULAR VOLUME 115.5 fl (80.0-96.0)
[2019-10-08 13:11] LABS: ALBUMIN 3.8 GM/DL (3.2-5.2); BILIRUBIN,TOTAL 0.4 MG/DL (0.2-1.0); CALCIUM LEVEL 9.2 MG/DL (8.8-10.2); CHOLESTEROL RISK RATIO 2.32 (<5); CREATININE FOR GFR 1.14 MG/DL (0.55-1.30); GLOMERULAR FILTRATION RATE 48.5 (>32); MAGNESIUM LEVEL 1.8 MG/DL (1.8-2.4); POTASSIUM SERUM 5.4 MEQ/L (3.5-5.1)
[2019-10-08 13:58] LABS: HEMOGLOBIN A1c 6.2 %
[2019-10-08 14:51] LABS: TOTAL 25(OH) VITAMIN D 87.1 NG/ML (30.0-100.0)
== END ==
LOC: M PLALAB 08:25
PROVIDERS: ATTEND Internal Medicine
DX: J44.9 Chronic obstructive pulmonary disease, unspecified (principal); I10 Essential (primary) hypertension; R73.01 Impaired fasting glucose; E78.00 Pure hypercholesterolemia, unspecified; M81.0 Age-related osteoporosis without current pathological fracture

== ENCOUNTER → 2020-03-31 | Outpatient (CLI) | payer MEDICARE ==
[2020-03-31 16:14] LABS: HEMATOCRIT 37.5 % (36.0-47.0); HEMOGLOBIN 10.3 g/dl (12.0-15.5); MEAN CORPUSCULAR HEMOGLOBIN 31.4 pg (27.0-33.0); MEAN CORPUSCULAR HGB CONC 27.5 g/dl (32.0-36.5); PLATELET COUNT, AUTOMATED 185 10^3/uL (150-450); RED BLOOD COUNT 3.28 10^6/uL (4.00-5.40); WHITE BLOOD COUNT 7.8 10^3/uL (4.0-10.0)
[2020-03-31 16:26] LABS: ALBUMIN 3.7 GM/DL (3.2-5.2); BILIRUBIN,TOTAL 0.3 MG/DL (0.2-1.0); CALCIUM LEVEL 9.1 MG/DL (8.8-10.2); CREATININE FOR GFR 1.18 MG/DL (0.55-1.30); GLOMERULAR FILTRATION RATE 46.5 (>32); MAGNESIUM LEVEL 1.6 MG/DL (1.8-2.4); MEAN CORPUSCULAR VOLUME 114.3 fl (80.0-96.0); POTASSIUM SERUM 5.1 MEQ/L (3.5-5.1); TOTAL PROTEIN 6.8 GM/DL (6.4-8.2)
[2020-03-31 16:33] LABS: HEMOGLOBIN A1c 5.6 %
== END ==
LOC: M WUC 13:27
PROVIDERS: ATTEND Internal Medicine
DX: I10 Essential (primary) hypertension (principal); R73.01 Impaired fasting glucose; D64.9 Anemia, unspecified

== ENCOUNTER → 2020-08-01 | Outpatient (CLI) | payer MEDICARE ==
[~2020-08-01] MED LIST changes: -MAG400TA PO; +MAGN400T35 PO
[2020-08-01 12:30] LABS: BASO # 0.1 10^3/uL (0.0-0.2); BASO % 0.9 % (0.0-1.0); EOS # 0.2 10^3/uL (0.0-0.5); EOS % 3.6 % (0.0-3.0); HEMATOCRIT 38.3 % (36.0-47.0); HEMOGLOBIN 10.4 g/dl (12.0-15.5); LYMPH % 14.8 % (24.0-44.0); MEAN CORPUSCULAR HEMOGLOBIN 31.2 pg (27.0-33.0); MEAN CORPUSCULAR HGB CONC 27.2 g/dl (32.0-36.5); MONO # 0.6 10^3/uL (0.0-0.8); MONO % 8.9 % (2.0-8.0); NEUTROPHILS # 4.8 10^3/uL (1.5-8.5); NEUTROPHILS % 71.2 % (36.0-66.0); PLATELET COUNT, AUTOMATED 190 10^3/uL (150-450); RED BLOOD COUNT 3.33 10^6/uL (4.00-5.40); WHITE BLOOD COUNT 6.7 10^3/uL (4.0-10.0)
[2020-08-01 13:05] LABS: ALBUMIN 3.9 GM/DL (3.2-5.2); BILIRUBIN,TOTAL 0.3 MG/DL (0.2-1.0); CALCIUM LEVEL 9.5 MG/DL (8.8-10.2); CHOLESTEROL RISK RATIO 2.098 (<5); CREATININE FOR GFR 1.34 MG/DL (0.55-1.30); GLOMERULAR FILTRATION RATE 40.1 (>32); MAGNESIUM LEVEL 2.2 MG/DL (1.8-2.4); POTASSIUM SERUM 4.8 MEQ/L (3.5-5.1); TOTAL PROTEIN 7.1 GM/DL (6.4-8.2)
[2020-08-01 14:09] LABS: HEMOGLOBIN A1c 5.6 %
== END ==
LOC: M WUC 09:50
PROVIDERS: ATTEND Internal Medicine
DX: I10 Essential (primary) hypertension (principal); J44.9 Chronic obstructive pulmonary disease, unspecified; R73.01 Impaired fasting glucose; E78.00 Pure hypercholesterolemia, unspecified

== ENCOUNTER 2020-10-20 02:13 | Emergency (ER) | payer MEDICARE ==
[2020-10-20 02:35] LABS: BASO # 0.1 10^3/uL (0.0-0.2); BASO % 0.9 % (0.0-1.0); EOS # 0.4 10^3/uL (0.0-0.5); EOS % 3.8 % (0.0-3.0); HEMATOCRIT 38.3 % (36.0-47.0); HEMOGLOBIN 10.8 g/dl (12.0-15.5); LYMPH # 1.7 10^3/uL (1.5-5.0); LYMPH % 18.2 % (24.0-44.0); MEAN CORPUSCULAR HEMOGLOBIN 31.8 pg (27.0-33.0); MEAN CORPUSCULAR HGB CONC 28.2 g/dl (32.0-36.5); MEAN CORPUSCULAR VOLUME 112.6 fl (80.0-96.0); MONO # 1.1 10^3/uL (0.0-0.8); MONO % 11.5 % (2.0-8.0); NEUTROPHILS # 6.1 10^3/uL (1.5-8.5); NEUTROPHILS % 65.2 % (36.0-66.0); PLATELET COUNT, AUTOMATED 195 10^3/uL (150-450); WHITE BLOOD COUNT 9.4 10^3/uL (4.0-10.0)
[2020-10-20] MEDS ORDERED: methylPREDNISolone 125MG 2ML VIAL IV ONE (03:00)
[2020-10-20 03:06] LABS: ALBUMIN 3.8 GM/DL (3.2-5.2); ALT/SGPT 15 U/L (12-78); BILIRUBIN,DIRECT < 0.1 MG/DL (0.0-0.2); BILIRUBIN,TOTAL 0.3 MG/DL (0.2-1.0); BLOOD UREA NITROGEN 41 MG/DL (7-18); CALCIUM LEVEL 8.7 MG/DL (8.8-10.2); CARBON DIOXIDE LEVEL 36 MEQ/L (21-32); CHLORIDE LEVEL 101 MEQ/L (98-107); CK-MB VALUE MASS 2.1 NG/ML (<3.6); CPK CREATINE PHOSPHOKINASE 52 U/L (26-192); GLOMERULAR FILTRATION RATE 41.5 (>32); GLUCOSE, FASTING 118 MG/DL (70-100); MB/CK RELATIVE INDEX 4.04 (< OR =4); NT-PRO BNP 705 PG/ML (<450); POTASSIUM SERUM 4.5 MEQ/L (3.5-5.1); SODIUM LEVEL 141 MEQ/L (136-145); TOTAL PROTEIN 7.1 GM/DL (6.4-8.2); TROPONIN I < 0.02 NG/ML (< 0.10)
--- NOTE | 2020-10-20 03:42 | REPVR ---
PROCEDURE INFORMATION: Exam: XR Chest Exam date and time: 10/20/2020 2:38 AM Age: 84 years old Clinical indication: Other: Dyspnea; Additional info: Dyspnea/cough TECHNIQUE: Imaging protocol: XR of the chest. Views: 1 view. COMPARISON: 1. CR Ribs uni W-PA CHEST ONLY 2018-05-01 20:31 2. MI PORTABLE CHEST X-RAY 2018-03-23 18:31 3. MI PORTABLE CHEST X-RAY 2017-09-14 06:46 FINDINGS: Tubes, catheters and devices: Left axillary dissection clips. Lungs: Emphysema. Bibasilar atelectasis, less likely infiltrate. Pleural spaces: Unremarkable. No pleural effusion. No pneumothorax. Heart/Mediastinum: Unremarkable. No cardiomegaly. Bones/joints: Unremarkable. IMPRESSION: Emphysema. Bibasilar atelectasis, less likely infiltrate. Electronically signed by: Tima Hong On 10/20/2020 03:41:37 AM
--- NOTE | 2020-10-20 05:40 | ECGEPIP ---
[facility] - ED Test Date: 2020-10-20 Pat Name: EFREN LAWLER Department: Room: - Gender: Female Telephone Information Supervisor: BLAYNE : 1935 Requested By: JOCELIN Merritt Order Number: [id number] Reading MD: Jak Beltre Measurements Intervals [place] Rate: 67 P: 6 [place]: 160 QRS: 44 QRSD: 76 T: 64 QT: 414 QTc: 437 Interpretive Statements Sinus rhythm with premature atrial complexes BASELINE ARTIFACT AFFECTS INTERPRETATION Electronically Signed on 10-20-2020 5:40:21 EDT by Jak Beltre
[2020-10-20 06:00] VITALS: BP 162/116
[2020-10-20 06:14] LABS: CK-MB VALUE MASS 1.9 NG/ML (<3.6); CPK CREATINE PHOSPHOKINASE 56 U/L (26-192); MB/CK RELATIVE INDEX 3.39 (< OR =4); TROPONIN I < 0.02 NG/ML (< 0.10)
[2020-10-20] MEDS ORDERED: TREL1AER (06:35)
[2020-10-20] MEDS ORDERED: PRED20TA PO (06:39)
--- NOTE | 2020-10-20 07:28 | ECGEPIP ---
[facility] - ED Test Date: 2020-10-20 Pat Name: EFREN LAWLER Department: Room: - Gender: Female [employer] Captain: BLAYNE : 1935 Requested By: JOCELIN Merritt Order Number: [id number] Reading MD: Jak Beltre Measurements Intervals [place] Rate: 62 P: 90 ID: [id number] QRS: 51 QRSD: 76 T: 53 QT: 448 QTc: 454 Interpretive Statements Normal sinus rhythm BASELINE ARTIFACT AFFECTS INTERPRETATION SIMILAR TO PRIOR ON SAME DATE Electronically Signed on 10-20-2020 7:28:36 EDT by Jak Beltre
== END 2020-10-20 06:55 | disposition home or self-care (01) ==
LOC: M ED 02:13
DX: J44.1 Chronic obstructive pulmonary disease with (acute) exacerbation (principal); I71.4 Abdominal aortic aneurysm, without rupture; I10 Essential (primary) hypertension; K21.9 Gastro-esophageal reflux disease without esophagitis; Z87.891 Personal history of nicotine dependence
CPT/HCPCS: 71045; 80048; 80076; 82550; 82553; 83605; 83880; 84484; 85025; 87798; 93005; 93041; 94760; 96374; 99285; J2930

== ENCOUNTER → 2021-02-07 | Outpatient (CLI) | payer MEDICARE ==
[~2021-02-07] MED LIST changes: +PRED20TA PO; +TREL1AER
[2021-02-07 12:21] LABS: BASO # 0.1 10^3/uL (0.0-0.2); BASO % 0.6 % (0.0-1.0); EOS # 0.3 10^3/uL (0.0-0.5); EOS % 2.7 % (0.0-3.0); HEMATOCRIT 39.8 % (36.0-47.0); HEMOGLOBIN 11.1 g/dl (12.0-15.5); LYMPH # 1.8 10^3/uL (1.5-5.0); MEAN CORPUSCULAR HEMOGLOBIN 30.9 pg (27.0-33.0); MEAN CORPUSCULAR HGB CONC 27.9 g/dl (32.0-36.5); MEAN CORPUSCULAR VOLUME 110.9 fl (80.0-96.0); MONO # 1.1 10^3/uL (0.0-0.8); MONO % 10.5 % (2.0-8.0); NEUTROPHILS # 7.2 10^3/uL (1.5-8.5); NEUTROPHILS % 68.8 % (36.0-66.0); PLATELET COUNT, AUTOMATED 211 10^3/uL (150-450); RED BLOOD COUNT 3.59 10^6/uL (4.00-5.40); WHITE BLOOD COUNT 10.5 10^3/uL (4.0-10.0)
[2021-02-07 12:46] LABS: HEMOGLOBIN A1c 5.7 %
[2021-02-07 13:30] LABS: ALBUMIN 3.9 GM/DL (3.2-5.2); BILIRUBIN,TOTAL 0.5 MG/DL (0.2-1.0); CALCIUM LEVEL 9.8 MG/DL (8.8-10.2); CREATININE FOR GFR 1.12 MG/DL (0.55-1.30); GLOMERULAR FILTRATION RATE 49.2 (>32); MAGNESIUM LEVEL 1.7 MG/DL (1.8-2.4); POTASSIUM SERUM 5.2 MEQ/L (3.5-5.1); TOTAL PROTEIN 7.3 GM/DL (6.4-8.2)
== END ==
LOC: M WUC 10:05
PROVIDERS: ATTEND Internal Medicine
DX: I10 Essential (primary) hypertension (principal); R73.01 Impaired fasting glucose; D64.9 Anemia, unspecified

== ENCOUNTER 2021-06-16 16:10 | Inpatient (IN) | payer MEDICARE ==
[~2021-06-16] VITALS: Ht 162.6 cm; Wt 61.0 kg
[2021-06-16] MEDS ORDERED: [UNRECOGNIZED DRUG - OTHER] (16:25)
[2021-06-16 21:21] LABS: BASO % 0.3 % (0.0-1.0); EOS % 0.2 % (0.0-3.0); HEMATOCRIT 36.3 % (36.0-47.0); HEMOGLOBIN 10.4 g/dl (12.0-15.5); LYMPH # 0.9 10^3/uL (1.5-5.0); LYMPH % 6.4 % (24.0-44.0); MEAN CORPUSCULAR HEMOGLOBIN 30.2 pg (27.0-33.0); MEAN CORPUSCULAR HGB CONC 28.7 g/dl (32.0-36.5); MEAN CORPUSCULAR VOLUME 105.5 fl (80.0-96.0); MONO % 7.2 % (2.0-8.0); NEUTROPHILS # 12.1 10^3/uL (1.5-8.5); NEUTROPHILS % 85.4 % (36.0-66.0); PLATELET COUNT, AUTOMATED 252 10^3/uL (150-450); RED BLOOD COUNT 3.44 10^6/uL (4.00-5.40); WHITE BLOOD COUNT 14.1 10^3/uL (4.0-10.0)
[2021-06-16 21:32] LABS: INR 1.05; PROTHROMBIN TIME 14.1 SECONDS (12.7-14.5)
[2021-06-16 21:33] LABS: PARTIAL THROMBOPLASTIN TIME 29.5 SECONDS (25.9-37.0)
[2021-06-16 21:49] LABS: CK-MB VALUE MASS < 1.0 NG/ML (<3.6); CPK CREATINE PHOSPHOKINASE 49 U/L (26-192); MB/CK RELATIVE INDEX 2.04 (< OR =4)
[2021-06-16 22:17] LABS: ALBUMIN 3.5 GM/DL (3.2-5.2); BILIRUBIN,DIRECT 0.2 MG/DL (0.0-0.2); BILIRUBIN,TOTAL 0.8 MG/DL (0.2-1.0); CALCIUM LEVEL 9.9 MG/DL (8.8-10.2); CREATININE FOR GFR 1.5 MG/DL (0.55-1.30); GLOMERULAR FILTRATION RATE 35.1 (>32); POTASSIUM SERUM 4.8 MEQ/L (3.5-5.1); TOTAL PROTEIN 7.7 GM/DL (6.4-8.2)
[2021-06-16] MEDS ORDERED: LORazepam 2 MG/ML VIAL IV STA (22:37)
[2021-06-16] MEDS ORDERED: LORazepam 2 MG/ML VIAL As Ordered ONE (22:39)
[2021-06-17] VITALS (7 sets, daily range): BP systolic 90–146; BP diastolic 59–79; O2SAT 98–100
[2021-06-17 01:07] LABS: CK-MB VALUE MASS 1.5 NG/ML (<3.6); MB/CK RELATIVE INDEX 2.78 (< OR =4)
[2021-06-17] MEDS ORDERED: cefTRIAXone SOD 1 GM in D5W MINI-BAG PLUS 50 ML IV ONE (01:50)
[2021-06-17 03:22] LABS: ABG BASE EXCESS 8.6 (-2.0-2.0); ABG HCO3 36.6 MEQ/L (22.0-26.0); ABG O2 SATURATION 98.1 % (95.0-99.0); ABG PARTIAL PRESSURE O2 112.8 mmHg (75.0-100.0); ABG STANDARD HCO3 32.4 MEQ/L (22.0-26.0); ABG TOTAL CO2 38.8 MEQ/L (23.0-31.0); ABG pH (ARTERIAL) 7.324 UNITS (7.350-7.450)
[2021-06-17] MEDS ORDERED: MAGN400T33 PO ×2 (04:15)
[2021-06-17] MEDS ORDERED: ALBUTEROL SULFATE 2.5 MG/0.5 ML INH NEB SOLN INH PRN (04:15)
[2021-06-17] MEDS ORDERED: ALBUTEROL 90 MCG/ACT 8GM HFA INHALER INH PRN (04:15)
[2021-06-17] MEDS ORDERED: CELE20TA PO (04:16)
[2021-06-17] MEDS ORDERED: FERR1TAB8 PO (04:18)
[2021-06-17] MEDS ORDERED: BACITAB PO (04:18)
[2021-06-17] MEDS ORDERED: VALS80TA PO (04:21)
[2021-06-17] MEDS ORDERED: VITA500C24 PO (04:21)
[2021-06-17] MEDS ORDERED: D31000TA2 PO (04:21)
[2021-06-17] MEDS ORDERED: ASPI-161 PO (04:21)
[2021-06-17] MEDS ORDERED: SPIR1CAP INH (04:21)
[2021-06-17] MEDS ORDERED: HOME MED LIST COMPLETE! XX SCH (04:25)
[2021-06-17] MEDS ORDERED: NS 1,000 ML IV SCH (04:45)
[2021-06-17] MEDS: DOXYCYCLINE HYCLATE 100 MG in D5W MINI-BAG PLUS 100 ML IV SCH ×2 (05:26→16:26)
[2021-06-17 05:49] LABS: ABG BASE EXCESS 7.4 (-2.0-2.0); ABG HCO3 34.7 MEQ/L (22.0-26.0); ABG O2 SATURATION 91.4 % (95.0-99.0); ABG PARTIAL PRESSURE O2 62.6 mmHg (75.0-100.0); ABG STANDARD HCO3 31.1 MEQ/L (22.0-26.0); ABG TOTAL CO2 36.7 MEQ/L (23.0-31.0); ABG pH (ARTERIAL) 7.343 UNITS (7.350-7.450)
[2021-06-17 05:50] LABS: ABG PARTIAL PRESSURE CO2 65.3 mmHg (35.0-45.0)
[2021-06-17 05:58] LABS: INR 1.09; PROTHROMBIN TIME 14.5 SECONDS (12.7-14.5)
[2021-06-17 05:59] LABS: PARTIAL THROMBOPLASTIN TIME 30.6 SECONDS (25.9-37.0)
[2021-06-17] MEDS: HEPARIN SOD (PORCINE) 5000UNITS/ML 1ML VIAL/SYRINGE SQ SCH ×3 (06:01→21:29)
[2021-06-17 06:02] LABS: D-DIMER QUANT 2654.42 ng/ml (<500)
[2021-06-17 06:21] LABS: C REACTIVE PROTEIN QUANTITATIV 10.3 MG/DL (0.00-0.30)
[2021-06-17] MEDS ORDERED: TIOTROPIUM INHALER/CAPSULE (SPIRIVA) INH SCH (08:00)
[2021-06-17] MEDS: IPRATROPIUM 0.5MG/ALBUTEROL 2.5MG INH SOL UD 3ML (DUONEB) INH SCH ×5 (08:00→23:19)
[2021-06-17] MEDS ORDERED: dexameTHASONE 4 MG/ML 1ML VIAL (J1100 PER 1MG) IV SCH (09:00)
[2021-06-17] MEDS ORDERED: CitaloPRAM (CeleXA) 20 MG TAB PO SCH (09:00)
[2021-06-17] MEDS: methylPREDNISolone 40MG 1ML VIAL IV SCH ×2 (10:46→17:14)
[2021-06-17] MEDS: OMEPRAZOLE 20 MG CAP PO SCH (10:46)
[2021-06-17] MEDS: LACTOBACILLUS ACIDOPHILUS CAP (BACID) PO SCH (10:46)
[2021-06-17] MEDS: ASCORBIC ACID 500 MG TAB PO SCH (10:46)
[2021-06-17] MEDS: ASPIRIN 81MG ENTERIC TABLET PO SCH (10:47)
[2021-06-17] MEDS: FERROUS SULFATE 325MG TAB PO SCH (10:47)
[2021-06-17] MEDS: VITAMIN D 1,000 INTERNATIONAL UNITS TABLET PO SCH (10:47)
[2021-06-17] MEDS: BISOPROLOL FUM 2.5 MG PER 1/2TAB PO SCH (10:47)
[2021-06-17] MEDS: ADVAIR HFA 115/21MCG INHALER INH SCH ×2 (11:14→19:51)
[2021-06-17 12:25] LABS: ABG BASE EXCESS 0.5 (-2.0-2.0); ABG HCO3 28.6 MEQ/L (22.0-26.0); ABG O2 SATURATION 96.3 % (95.0-99.0); ABG PARTIAL PRESSURE O2 96.1 mmHg (75.0-100.0); ABG STANDARD HCO3 24.9 MEQ/L (22.0-26.0); ABG TOTAL CO2 30.6 MEQ/L (23.0-31.0); ABG pH (ARTERIAL) 7.257 UNITS (7.350-7.450)
[2021-06-17 12:29] LABS: ABG PARTIAL PRESSURE CO2 65.7 mmHg (35.0-45.0)
[2021-06-17] MEDS: ONDANSETRON 4MG/2ML VIAL IV PRN (15:00)
[2021-06-17] MEDS ORDERED: METOCLOPRAMIDE INJ 10MG/2ML VIAL (J2765 PER 1) IV ONE (15:50)
[2021-06-17 18:21] LABS: APPEARANCE, URINE CLOUDY (CLEAR); BACTERIA, URINE AUTO 3+ (NEGATIVE); BILIRUBIN, URINE AUTO NEGATIVE (NEGATIVE); BLOOD, URINE BLOOD NEGATIVE (NEGATIVE); COLOR, URINE YELLOW (YELLOW); GLUCOSE, URINE (UA) AUTO NEGATIVE (NEGATIVE); KETONE, URINE AUTO TRACE mg/dL (NEGATIVE); LEUKOCYTE ESTERASE, URINE AUTO 3+ (NEGATIVE); MUCUS, URINE SMALL (NEGATIVE); NITRITE, URINE AUTO NEGATIVE (NEGATIVE); PROTEIN, URINE AUTO 1+ mg/dL (NEGATIVE); RBC, URINE AUTO 4 /HPF (0-3); SPECIFIC GRAVITY URINE AUTO 1.017 (1.002-1.035); SQUAMOUS EPITHELIAL CELL UR AU 3 /HPF (0-6); UROBILINOGEN, URINE AUTO 0.2 mg/dL (0.0-2.0); WBC, URINE AUTO 28 /HPF (0-3)
[2021-06-17] MEDS: IPRATROPIUM 0.5MG/ALBUTEROL 2.5MG INH SOL UD 3ML (DUONEB) NEB SCH (19:55)
[2021-06-17] MEDS: ATORVASTATIN 20 MG TAB PO SCH (20:37)
[2021-06-17 20:52] LABS: ABG BASE EXCESS -2.5 (-2.0-2.0); ABG HCO3 26.3 MEQ/L (22.0-26.0); ABG O2 SATURATION 93.3 % (95.0-99.0); ABG PARTIAL PRESSURE O2 76.5 mmHg (75.0-100.0); ABG STANDARD HCO3 22.3 MEQ/L (22.0-26.0); ABG TOTAL CO2 28.4 MEQ/L (23.0-31.0)
[2021-06-17 20:55] LABS: ABG PARTIAL PRESSURE CO2 68.1 mmHg (35.0-45.0); ABG pH (ARTERIAL) 7.204 UNITS (7.350-7.450)
[2021-06-18] VITALS (9 sets, daily range): BP systolic 99–153; BP diastolic 49–65; O2SAT 91–99
[2021-06-18] MEDS: methylPREDNISolone 40MG 1ML VIAL IV SCH ×4 (01:31→21:12)
[2021-06-18] MEDS: cefTRIAXone SOD 1 GM in D5W MINI-BAG PLUS 50 ML IV SCH (01:31)
[2021-06-18] MEDS: IPRATROPIUM 0.5MG/ALBUTEROL 2.5MG INH SOL UD 3ML (DUONEB) INH SCH ×6 (03:28→23:16)
[2021-06-18] MEDS: HEPARIN SOD (PORCINE) 5000UNITS/ML 1ML VIAL/SYRINGE SQ SCH ×3 (05:07→21:11)
[2021-06-18] MEDS: DOXYCYCLINE HYCLATE 100 MG in D5W MINI-BAG PLUS 100 ML IV SCH ×2 (05:07→15:50)
[2021-06-18 06:20] LABS: BASO % 0.1 % (0.0-1.0); HEMATOCRIT 31.3 % (36.0-47.0); HEMOGLOBIN 8.8 g/dl (12.0-15.5); LYMPH # 0.4 10^3/uL (1.5-5.0); LYMPH % 2.5 % (24.0-44.0); MEAN CORPUSCULAR HEMOGLOBIN 30.2 pg (27.0-33.0); MEAN CORPUSCULAR HGB CONC 28.1 g/dl (32.0-36.5); MEAN CORPUSCULAR VOLUME 107.6 fl (80.0-96.0); MONO # 0.4 10^3/uL (0.0-0.8); MONO % 2.5 % (2.0-8.0); NEUTROPHILS % 94.2 % (36.0-66.0); PLATELET COUNT, AUTOMATED 232 10^3/uL (150-450); RED BLOOD COUNT 2.91 10^6/uL (4.00-5.40); WHITE BLOOD COUNT 13.8 10^3/uL (4.0-10.0)
[2021-06-18 06:48] LABS: CREATININE FOR GFR 1.65 MG/DL (0.55-1.30); GLOMERULAR FILTRATION RATE 31.5 (>32); MAGNESIUM LEVEL 2.4 MG/DL (1.8-2.4); PHOSPHORUS LEVEL 3.2 MG/DL (2.5-4.9); POTASSIUM SERUM 3.9 MEQ/L (3.5-5.1)
[2021-06-18] MEDS: ONDANSETRON 4MG/2ML VIAL IV PRN (07:36)
[2021-06-18] MEDS: ADVAIR HFA 115/21MCG INHALER INH SCH ×2 (07:49→19:47)
[2021-06-18 08:07] LABS: ABG BASE EXCESS 1.2 (-2.0-2.0); ABG HCO3 28.7 MEQ/L (22.0-26.0); ABG O2 SATURATION 94.5 % (95.0-99.0); ABG STANDARD HCO3 25.5 MEQ/L (22.0-26.0); ABG TOTAL CO2 30.6 MEQ/L (23.0-31.0); ABG pH (ARTERIAL) 7.285 UNITS (7.350-7.450)
[2021-06-18 08:13] LABS: ABG PARTIAL PRESSURE CO2 61.8 mmHg (35.0-45.0)
[2021-06-18] MEDS ORDERED: PNEUMOCOCCAL VACCINE 0.5ML SYRINGE (PNEUMOVAX 23) IM ONE (09:00)
[2021-06-18] MEDS: ASPIRIN 81MG ENTERIC TABLET PO SCH (09:18)
[2021-06-18] MEDS: VITAMIN D 1,000 INTERNATIONAL UNITS TABLET PO SCH (09:18)
[2021-06-18] MEDS: LACTOBACILLUS ACIDOPHILUS CAP (BACID) PO SCH (09:18)
[2021-06-18] MEDS: BISOPROLOL FUM 2.5 MG PER 1/2TAB PO SCH (09:18)
[2021-06-18] MEDS: ASCORBIC ACID 500 MG TAB PO SCH (09:18)
[2021-06-18] MEDS: OMEPRAZOLE 20 MG CAP PO SCH (09:18)
[2021-06-18] MEDS: FERROUS SULFATE 325MG TAB PO SCH (09:18)
[2021-06-18] MEDS ORDERED: PROMETHAZINE 25 MG TAB PO ONE (14:30)
[2021-06-18] MEDS: ATORVASTATIN 20 MG TAB PO SCH (21:11)
[2021-06-19] VITALS (7 sets, daily range): BP systolic 122–137; BP diastolic 54–63; O2SAT 90–98
[2021-06-19] MEDS: cefTRIAXone SOD 1 GM in D5W MINI-BAG PLUS 50 ML IV SCH (01:21)
[2021-06-19] MEDS: IPRATROPIUM 0.5MG/ALBUTEROL 2.5MG INH SOL UD 3ML (DUONEB) INH SCH ×6 (03:24→23:33)
[2021-06-19] MEDS: methylPREDNISolone 40MG 1ML VIAL IV SCH ×4 (04:20→21:11)
[2021-06-19] MEDS: DOXYCYCLINE HYCLATE 100 MG in D5W MINI-BAG PLUS 100 ML IV SCH ×2 (04:20→17:42)
[2021-06-19] MEDS: HEPARIN SOD (PORCINE) 5000UNITS/ML 1ML VIAL/SYRINGE SQ SCH ×3 (05:26→21:11)
[2021-06-19 05:51] LABS: BASO % 0.1 % (0.0-1.0); HEMOGLOBIN 8.9 g/dl (12.0-15.5); LYMPH # 0.4 10^3/uL (1.5-5.0); LYMPH % 1.8 % (24.0-44.0); MEAN CORPUSCULAR HEMOGLOBIN 31.2 pg (27.0-33.0); MEAN CORPUSCULAR HGB CONC 28.7 g/dl (32.0-36.5); MEAN CORPUSCULAR VOLUME 108.8 fl (80.0-96.0); MONO # 0.7 10^3/uL (0.0-0.8); MONO % 3.2 % (2.0-8.0); NEUTROPHILS # 21.6 10^3/uL (1.5-8.5); NEUTROPHILS % 93.9 % (36.0-66.0); PLATELET COUNT, AUTOMATED 252 10^3/uL (150-450); RED BLOOD COUNT 2.85 10^6/uL (4.00-5.40)
[2021-06-19 06:23] LABS: CREATININE FOR GFR 1.47 MG/DL (0.55-1.30); MAGNESIUM LEVEL 2.5 MG/DL (1.8-2.4); PHOSPHORUS LEVEL 3.1 MG/DL (2.5-4.9); POTASSIUM SERUM 4.9 MEQ/L (3.5-5.1)
[2021-06-19] MEDS: ADVAIR HFA 115/21MCG INHALER INH SCH ×2 (07:50→19:43)
[2021-06-19] MEDS ORDERED: PNEUMOCOCCAL VACCINE 0.5ML SYRINGE (PNEUMOVAX 23) IM ONE (09:00)
[2021-06-19] MEDS: NS 0.45% 1,000 ML IV SCH (10:16)
[2021-06-19] MEDS: ASPIRIN 81MG ENTERIC TABLET PO SCH (10:18)
[2021-06-19] MEDS: LACTOBACILLUS ACIDOPHILUS CAP (BACID) PO SCH (10:19)
[2021-06-19] MEDS: VITAMIN D 1,000 INTERNATIONAL UNITS TABLET PO SCH (10:19)
[2021-06-19] MEDS: BISOPROLOL FUM 2.5 MG PER 1/2TAB PO SCH (10:19)
[2021-06-19] MEDS: OMEPRAZOLE 20 MG CAP PO SCH (10:19)
[2021-06-19] MEDS: FERROUS SULFATE 325MG TAB PO SCH (10:19)
[2021-06-19] MEDS: ASCORBIC ACID 500 MG TAB PO SCH (10:19)
[2021-06-19 15:09] LABS: MYCOPLASMA PNEUMONIAE IgG 899 U/mL (0-99); MYCOPLASMA PNEUMONIAE IgM <770 U/mL (0-769)
[2021-06-19] MEDS ORDERED: SODIUM CHLORIDE NASAL 0.65% SPRAY BTL (OCEAN) PRN (19:05)
[2021-06-19] MEDS: ATORVASTATIN 20 MG TAB PO SCH (21:12)
[2021-06-20] VITALS (7 sets, daily range): BP systolic 117–178; BP diastolic 54–84; O2SAT 94–96
[2021-06-20] MEDS: cefTRIAXone SOD 1 GM in D5W MINI-BAG PLUS 50 ML IV SCH (01:25)
[2021-06-20] MEDS: NS 0.45% 1,000 ML IV SCH ×2 (02:24→21:04)
[2021-06-20] MEDS: IPRATROPIUM 0.5MG/ALBUTEROL 2.5MG INH SOL UD 3ML (DUONEB) INH SCH ×6 (03:45→23:51)
[2021-06-20] MEDS: DOXYCYCLINE HYCLATE 100 MG in D5W MINI-BAG PLUS 100 ML IV SCH ×2 (04:01→17:20)
[2021-06-20] MEDS: methylPREDNISolone 40MG 1ML VIAL IV SCH ×2 (04:01→10:16)
[2021-06-20 04:42] LABS: BASO % 0.1 % (0.0-1.0); LYMPH # 0.6 10^3/uL (1.5-5.0); LYMPH % 3.6 % (24.0-44.0); MEAN CORPUSCULAR HEMOGLOBIN 30.9 pg (27.0-33.0); MEAN CORPUSCULAR VOLUME 106.5 fl (80.0-96.0); MONO # 0.6 10^3/uL (0.0-0.8); MONO % 3.7 % (2.0-8.0); NEUTROPHILS # 14.1 10^3/uL (1.5-8.5); PLATELET COUNT, AUTOMATED 231 10^3/uL (150-450); RED BLOOD COUNT 2.91 10^6/uL (4.00-5.40); WHITE BLOOD COUNT 15.3 10^3/uL (4.0-10.0)
[2021-06-20] MEDS: HEPARIN SOD (PORCINE) 5000UNITS/ML 1ML VIAL/SYRINGE SQ SCH ×3 (05:16→21:05)
[2021-06-20 05:27] LABS: CALCIUM LEVEL 8.8 MG/DL (8.8-10.2); CREATININE FOR GFR 1.29 MG/DL (0.55-1.30); GLOMERULAR FILTRATION RATE 41.8 (>32); MAGNESIUM LEVEL 2.4 MG/DL (1.8-2.4); PHOSPHORUS LEVEL 2.4 MG/DL (2.5-4.9); POTASSIUM SERUM 4.7 MEQ/L (3.5-5.1)
[2021-06-20] MEDS: ADVAIR HFA 115/21MCG INHALER INH SCH ×2 (07:48→20:15)
[2021-06-20] MEDS: OMEPRAZOLE 20 MG CAP PO SCH (10:15)
[2021-06-20] MEDS: LACTOBACILLUS ACIDOPHILUS CAP (BACID) PO SCH (10:15)
[2021-06-20] MEDS: VITAMIN D 1,000 INTERNATIONAL UNITS TABLET PO SCH (10:16)
[2021-06-20] MEDS: FERROUS SULFATE 325MG TAB PO SCH (10:16)
[2021-06-20] MEDS: ASPIRIN 81MG ENTERIC TABLET PO SCH (10:16)
[2021-06-20] MEDS: ASCORBIC ACID 500 MG TAB PO SCH (10:16)
[2021-06-20] MEDS: BISOPROLOL FUM 2.5 MG PER 1/2TAB PO SCH (10:17)
[2021-06-20] MEDS ORDERED: POTASSIUM PHOSPHATE INJ 20 MMOL in D5W 250 ML IV ONE (13:00)
[2021-06-20] MEDS: methylPREDNISolone 125MG 2ML VIAL IV SCH ×2 (17:21→21:04)
[2021-06-20] MEDS: ATORVASTATIN 20 MG TAB PO SCH (21:05)
[2021-06-21] VITALS (15 sets, daily range): BP systolic 128–147; BP diastolic 73–80; O2SAT 79–100
[2021-06-21] MEDS: cefTRIAXone SOD 1 GM in D5W MINI-BAG PLUS 50 ML IV SCH (02:40)
[2021-06-21] MEDS: methylPREDNISolone 125MG 2ML VIAL IV SCH ×4 (04:02→20:15)
[2021-06-21] MEDS: DOXYCYCLINE HYCLATE 100 MG in D5W MINI-BAG PLUS 100 ML IV SCH ×2 (05:20→17:22)
[2021-06-21] MEDS: HEPARIN SOD (PORCINE) 5000UNITS/ML 1ML VIAL/SYRINGE SQ SCH ×3 (05:20→20:15)
[2021-06-21 05:37] LABS: BASO % 0.3 % (0.0-1.0); HEMATOCRIT 32.7 % (36.0-47.0); HEMOGLOBIN 9.3 g/dl (12.0-15.5); LYMPH # 0.5 10^3/uL (1.5-5.0); LYMPH % 4.3 % (24.0-44.0); MEAN CORPUSCULAR HEMOGLOBIN 30.6 pg (27.0-33.0); MEAN CORPUSCULAR HGB CONC 28.4 g/dl (32.0-36.5); MEAN CORPUSCULAR VOLUME 107.6 fl (80.0-96.0); MONO # 0.4 10^3/uL (0.0-0.8); MONO % 3.4 % (2.0-8.0); NEUTROPHILS # 9.7 10^3/uL (1.5-8.5); NEUTROPHILS % 90.5 % (36.0-66.0); PLATELET COUNT, AUTOMATED 229 10^3/uL (150-450); RED BLOOD COUNT 3.04 10^6/uL (4.00-5.40); WHITE BLOOD COUNT 10.7 10^3/uL (4.0-10.0)
[2021-06-21 06:05] LABS: CALCIUM LEVEL 8.9 MG/DL (8.8-10.2); CREATININE FOR GFR 1.2 MG/DL (0.55-1.30); GLOMERULAR FILTRATION RATE 45.5 (>32); MAGNESIUM LEVEL 2.3 MG/DL (1.8-2.4); PHOSPHORUS LEVEL 3.8 MG/DL (2.5-4.9); POTASSIUM SERUM 4.5 MEQ/L (3.5-5.1)
[2021-06-21] MEDS: ADVAIR HFA 115/21MCG INHALER INH SCH ×2 (07:54→19:34)
[2021-06-21] MEDS: IPRATROPIUM 0.5MG/ALBUTEROL 2.5MG INH SOL UD 3ML (DUONEB) INH SCH ×5 (07:54→23:49)
[2021-06-21 08:26] LABS: ABG BASE EXCESS 6.1 (-2.0-2.0); ABG HCO3 34.9 MEQ/L (22.0-26.0); ABG O2 SATURATION 99.4 % (95.0-99.0); ABG PARTIAL PRESSURE O2 263.5 mmHg (75.0-100.0); ABG TOTAL CO2 37.3 MEQ/L (23.0-31.0); ABG pH (ARTERIAL) 7.276 UNITS (7.350-7.450)
[2021-06-21 08:31] LABS: ABG PARTIAL PRESSURE CO2 76.7 mmHg (35.0-45.0)
[2021-06-21] MEDS: ASPIRIN 81MG ENTERIC TABLET PO SCH (09:23)
[2021-06-21] MEDS: VITAMIN D 1,000 INTERNATIONAL UNITS TABLET PO SCH (09:23)
[2021-06-21] MEDS: ASCORBIC ACID 500 MG TAB PO SCH (09:23)
[2021-06-21] MEDS: FERROUS SULFATE 325MG TAB PO SCH (09:23)
[2021-06-21] MEDS: OMEPRAZOLE 20 MG CAP PO SCH (09:23)
[2021-06-21] MEDS: LACTOBACILLUS ACIDOPHILUS CAP (BACID) PO SCH (09:23)
[2021-06-21] MEDS: BISOPROLOL FUM 2.5 MG PER 1/2TAB PO SCH (09:23)
[2021-06-21] MEDS ORDERED: methylPREDNISolone 40MG 1ML VIAL IV ONE (09:45)
[2021-06-21] MEDS ORDERED: FUROSEMIDE 20MG/2ML VIAL (J1940) IV ONE (12:35)
[2021-06-21] MEDS ORDERED: LEVALBUTEROL 1.25 MG/0.5 ML CONCENTRATE NEB INH PRN (12:35)
[2021-06-21 16:12] LABS: CHLAMYDIA PNEUMONIAE IgM <1:10 (Neg:<1:10)
[2021-06-21] MEDS: MONTELUKAST 10 MG TAB PO SCH (20:15)
[2021-06-21] MEDS: ATORVASTATIN 20 MG TAB PO SCH (20:15)
[2021-06-21 20:23] LABS: VENOUS BASE EXCESS 13.3 (-2.0-2.0); VENOUS HCO3 40.9 MEQ/L (23.0-27.0); VENOUS O2 SATURATION 87.8 % (60.0-80.0); VENOUS PARTIAL PRESSURE CO2 69.2 mmHg (38.0-50.0); VENOUS PARTIAL PRESSURE O2 53.3 mmHg (30.0-50.0); VENOUS PH 7.389 UNITS (7.330-7.430); VENOUS STANDARD HCO3 36.8 MEQ/L
[2021-06-22] VITALS (9 sets, daily range): BP systolic 129–183; BP diastolic 65–90; O2SAT 89–92
[2021-06-22] MEDS: IPRATROPIUM 0.5MG/ALBUTEROL 2.5MG INH SOL UD 3ML (DUONEB) INH SCH ×7 (02:15→23:00)
[2021-06-22] MEDS: cefTRIAXone SOD 1 GM in D5W MINI-BAG PLUS 50 ML IV SCH (03:04)
[2021-06-22] MEDS: methylPREDNISolone 125MG 2ML VIAL IV SCH ×4 (03:05→21:18)
[2021-06-22 05:35] LABS: BASO % 0.2 % (0.0-1.0); HEMATOCRIT 32.7 % (36.0-47.0); HEMOGLOBIN 9.7 g/dl (12.0-15.5); LYMPH # 0.5 10^3/uL (1.5-5.0); MEAN CORPUSCULAR HEMOGLOBIN 30.5 pg (27.0-33.0); MEAN CORPUSCULAR HGB CONC 29.7 g/dl (32.0-36.5); MEAN CORPUSCULAR VOLUME 102.8 fl (80.0-96.0); MONO # 0.6 10^3/uL (0.0-0.8); MONO % 5.1 % (2.0-8.0); NEUTROPHILS # 10.2 10^3/uL (1.5-8.5); NEUTROPHILS % 89.2 % (36.0-66.0); PLATELET COUNT, AUTOMATED 254 10^3/uL (150-450); RED BLOOD COUNT 3.18 10^6/uL (4.00-5.40); WHITE BLOOD COUNT 11.4 10^3/uL (4.0-10.0)
[2021-06-22] MEDS: HEPARIN SOD (PORCINE) 5000UNITS/ML 1ML VIAL/SYRINGE SQ SCH ×3 (05:46→21:18)
[2021-06-22] MEDS: DOXYCYCLINE HYCLATE 100 MG in D5W MINI-BAG PLUS 100 ML IV SCH ×2 (05:46→17:04)
[2021-06-22 05:48] LABS: CALCIUM LEVEL 9.1 MG/DL (8.8-10.2); CREATININE FOR GFR 1.31 MG/DL (0.55-1.30); GLOMERULAR FILTRATION RATE 41.1 (>32); MAGNESIUM LEVEL 2.3 MG/DL (1.8-2.4); PHOSPHORUS LEVEL 3.6 MG/DL (2.5-4.9); POTASSIUM SERUM 3.9 MEQ/L (3.5-5.1)
[2021-06-22] MEDS: ADVAIR HFA 115/21MCG INHALER INH SCH ×2 (07:39→20:38)
[2021-06-22] MEDS: NS 1,000 ML IV SCH ×2 (08:24→21:19)
[2021-06-22] MEDS ORDERED: E-Z-PAQUE 96% w/w SUSP 176GM BTL As Ordered ONE (09:40)
[2021-06-22] MEDS: PANTOPRAZOLE 40MG VIAL (C9113 PER 1) IV SCH ×3 (10:06→21:18)
[2021-06-22] MEDS: ASCORBIC ACID 500 MG TAB PO SCH ×2 (10:06→12:23)
[2021-06-22] MEDS: FERROUS SULFATE 325MG TAB PO SCH ×2 (10:06→10:48)
[2021-06-22] MEDS: LACTOBACILLUS ACIDOPHILUS CAP (BACID) PO SCH ×2 (10:07→12:23)
[2021-06-22] MEDS: VITAMIN D 1,000 INTERNATIONAL UNITS TABLET PO SCH (10:07)
[2021-06-22] MEDS: ASPIRIN 81MG ENTERIC TABLET PO SCH (10:07)
[2021-06-22] MEDS: BISOPROLOL FUM 2.5 MG PER 1/2TAB PO SCH (10:07)
[2021-06-22 10:09] LABS: BODY FLUID CULTURE Not indicated. (.); LEGIONELLA ANTIGEN URINE Negative (Negative); ORGANISM ID Not indicated. (.); SPECIMEN SOURCE Urine (.); URINE STREP PNEUMONIAE ANTIGEN Negative (Negative)
[2021-06-22] MEDS: SUCRALFATE SUSP 1GM/10ML UD PO SCH ×3 (12:00→23:52)
[2021-06-22] MEDS ORDERED: hydrALAZINE 20MG/ML 1ML VIAL (J0360 PER 20MG) IV ONE (12:15)
[2021-06-22] MEDS ORDERED: amLODIPine 5 MG TAB PO ONE (16:00)
[2021-06-22] MEDS: **hydrALAZINE HCL** 25 MG TAB PO SCH ×2 (17:04→23:34)
[2021-06-22] MEDS: ATORVASTATIN 20 MG TAB PO SCH (20:27)
[2021-06-22] MEDS: MONTELUKAST 10 MG TAB PO SCH (20:27)
[2021-06-22] MEDS ORDERED: NS 500 ML IV ONE (23:45)
[2021-06-23] VITALS (7 sets, daily range): BP systolic 128–165; BP diastolic 59–86; O2SAT 91–93
[2021-06-23] MEDS: PANTOPRAZOLE SODIUM 40 MG in D5W 50 ML IV SCH ×2 (00:26→04:32)
[2021-06-23 00:33] LABS: HEMATOCRIT 34.3 % (36.0-47.0); HEMOGLOBIN 9.9 g/dl (12.0-15.5); MEAN CORPUSCULAR HEMOGLOBIN 30.8 pg (27.0-33.0); MEAN CORPUSCULAR HGB CONC 28.9 g/dl (32.0-36.5); MEAN CORPUSCULAR VOLUME 106.9 fl (80.0-96.0); PLATELET COUNT, AUTOMATED 281 10^3/uL (150-450); RED BLOOD COUNT 3.21 10^6/uL (4.00-5.40); WHITE BLOOD COUNT 14.3 10^3/uL (4.0-10.0)
[2021-06-23 00:33] LABS: CK-MB VALUE MASS 12.6 NG/ML (<3.6); MB/CK RELATIVE INDEX 3.83 (< OR =4)
[2021-06-23] MEDS: IPRATROPIUM 0.5MG/ALBUTEROL 2.5MG INH SOL UD 3ML (DUONEB) INH SCH ×8 (00:48→23:00)
[2021-06-23] MEDS: cefTRIAXone SOD 1 GM in D5W MINI-BAG PLUS 50 ML IV SCH (01:29)
[2021-06-23] MEDS: methylPREDNISolone 125MG 2ML VIAL IV SCH ×4 (03:46→22:42)
[2021-06-23] MEDS: DOXYCYCLINE HYCLATE 100 MG in D5W MINI-BAG PLUS 100 ML IV SCH (04:31)
[2021-06-23] MEDS: **hydrALAZINE HCL** 25 MG TAB PO SCH ×3 (05:42→17:07)
[2021-06-23 05:43] LABS: HEMATOCRIT 31.8 % (36.0-47.0); HEMOGLOBIN 9.2 g/dl (12.0-15.5); MEAN CORPUSCULAR HEMOGLOBIN 30.8 pg (27.0-33.0); MEAN CORPUSCULAR HGB CONC 28.9 g/dl (32.0-36.5); MEAN CORPUSCULAR VOLUME 106.4 fl (80.0-96.0); PLATELET COUNT, AUTOMATED 263 10^3/uL (150-450); RED BLOOD COUNT 2.99 10^6/uL (4.00-5.40); WHITE BLOOD COUNT 14.7 10^3/uL (4.0-10.0)
[2021-06-23 06:12] LABS: CK-MB VALUE MASS 17.4 NG/ML (<3.6); MB/CK RELATIVE INDEX 3.88 (< OR =4)
[2021-06-23] MEDS: ADVAIR HFA 115/21MCG INHALER INH SCH ×2 (08:16→20:00)
[2021-06-23 08:27] LABS: ABG HCO3 41.8 MEQ/L (22.0-26.0); ABG O2 SATURATION 91.1 % (95.0-99.0); ABG PARTIAL PRESSURE O2 63.9 mmHg (75.0-100.0); ABG STANDARD HCO3 37.7 MEQ/L (22.0-26.0); ABG pH (ARTERIAL) 7.373 UNITS (7.350-7.450)
[2021-06-23 08:30] LABS: ABG PARTIAL PRESSURE CO2 73.4 mmHg (35.0-45.0)
[2021-06-23 08:34] LABS: CALCIUM LEVEL 8.3 MG/DL (8.8-10.2); CREATININE FOR GFR 1.52 MG/DL (0.55-1.30); GLOMERULAR FILTRATION RATE 34.6 (>32); MAGNESIUM LEVEL 2.3 MG/DL (1.8-2.4); PHOSPHORUS LEVEL 4.6 MG/DL (2.5-4.9); POTASSIUM SERUM 4.1 MEQ/L (3.5-5.1)
[2021-06-23] MEDS ORDERED: amLODIPine 5 MG TAB PO SCH (09:00)
[2021-06-23] MEDS ORDERED: LORazepam 2 MG/ML VIAL IV PRN (09:50)
[2021-06-23] MEDS ORDERED: SCOPOLAMINE 1MG TRANSDERMAL PATCH TOP PRN (09:50)
[2021-06-23] MEDS: MORPHINE 10MG/0.5ML ORAL CONCENTRATE SOLUTION U/D SL PRN ×2 (10:16→15:41)
[2021-06-23] MEDS ORDERED: MORPHINE 2 MG/ML 1ML VIAL (J2270) IV ONE ×2 (14:00→16:10)
[2021-06-24] MEDS: IPRATROPIUM 0.5MG/ALBUTEROL 2.5MG INH SOL UD 3ML (DUONEB) INH SCH ×8 (02:00→22:52)
[2021-06-24] MEDS: MORPHINE 10MG/0.5ML ORAL CONCENTRATE SOLUTION U/D SL PRN ×3 (04:16→21:04)
[2021-06-24] MEDS: methylPREDNISolone 125MG 2ML VIAL IV SCH ×2 (04:16→08:40)
[2021-06-24] MEDS ORDERED: MORPHINE 2 MG/ML 1ML VIAL (J2270) IV PRN (04:30)
[2021-06-24] MEDS: **hydrALAZINE HCL** 25 MG TAB PO SCH ×2 (05:21)
[2021-06-24] MEDS: ADVAIR HFA 115/21MCG INHALER INH SCH ×2 (08:00→19:49)
[2021-06-24] MEDS ORDERED: LORazepam 1 MG TAB PO PRN ×2 (10:40→10:45)
[2021-06-24] MEDS ORDERED: ONDANSETRON 4 MG ORAL DISINTEGRATING TAB SL PRN (10:40)
[2021-06-24] MEDS ORDERED: ONDANSETRON 4 MG ORAL DISINTEGRATING TAB PO PRN (10:45)
[2021-06-24] MEDS ORDERED: methylPREDNISolone 125MG 2ML VIAL IV SCH (16:00)
[2021-06-25] MEDS: IPRATROPIUM 0.5MG/ALBUTEROL 2.5MG INH SOL UD 3ML (DUONEB) INH SCH ×8 (01:37→23:00)
[2021-06-25] MEDS: MORPHINE 10MG/0.5ML ORAL CONCENTRATE SOLUTION U/D SL PRN ×4 (03:21→16:05)
[2021-06-25] MEDS: ADVAIR HFA 115/21MCG INHALER INH SCH ×3 (07:33→19:33)
[2021-06-26] MEDS: IPRATROPIUM 0.5MG/ALBUTEROL 2.5MG INH SOL UD 3ML (DUONEB) INH SCH (00:24)
[2021-06-26] MEDS: MORPHINE 10MG/0.5ML ORAL CONCENTRATE SOLUTION U/D SL PRN (00:54)
[2021-06-26] MEDS ORDERED: LORazepam 2 MG/ML VIAL IM PRN (01:25)
== END 2021-06-26 03:04 | disposition expired | DRG 393 ==
LOC: M ED 16:10 → M ED INP 06-17 03:51 → ENRESERV 06-17 04:27 → M PCU 06-17 05:08 → M MSPAV 06-24 16:03
PROVIDERS: ADMIT Family Medicine; ATTEND Internal Medicine
DX: K43.6 Other and unspecified ventral hernia with obstruction, without gangrene (principal); J96.22 Acute and chronic respiratory failure with hypercapnia; J96.21 Acute and chronic respiratory failure with hypoxia; J69.0 Pneumonitis due to inhalation of food and vomit; J44.1 Chronic obstructive pulmonary disease with (acute) exacerbation; N17.9 Acute kidney failure, unspecified; K56.7 Ileus, unspecified; K92.2 Gastrointestinal hemorrhage, unspecified; I13.0 Hypertensive heart and chronic kidney disease with heart failure and stage 1 through stage 4 chronic kidney disease, or unspecified chronic kidney disease; I48.91 Unspecified atrial fibrillation; I25.10 Atherosclerotic heart disease of native coronary artery without angina pectoris; Z95.2 Presence of prosthetic heart valve; Z85.3 Personal history of malignant neoplasm of breast; Z87.891 Personal history of nicotine dependence; E78.5 Hyperlipidemia, unspecified; D64.9 Anemia, unspecified; Z79.899 Other long term (current) drug therapy; Z79.82 Long term (current) use of aspirin; Z91.041 Radiographic dye allergy status; Z88.8 Allergy status to other drugs, medicaments and biological substances; Z51.5 Encounter for palliative care; I50.9 Heart failure, unspecified; I71.4 Abdominal aortic aneurysm, without rupture; F39 Unspecified mood [affective] disorder; N18.9 Chronic kidney disease, unspecified; E83.39 Other disorders of phosphorus metabolism